=== PATIENT | male | born 1980 | race African-American/Black ===

== ENCOUNTER 2020-07-23 15:50 | Emergency (ER) | payer OTHER ==
[2020-07-23 16:55] LABS: #Basophils 0.1 thou/uL (0.0-0.2); #Eosinphils 0.1 thou/uL (0.0-0.7); #Lymphocytes 1.8 thou/uL (1.20-3.40); #Monocytes 0.9 thou/uL (0.11-0.59); #Neutrophils 8.9 thou/uL (1.40-6.50); %Basophils 0.6 % (0.0-1.0); %Lymphocytes 15.1 % (21.0-51.0); %Monocytes 7.6 % (0.0-10.0); %Neutrophils 75.7 % (42.0-75.0); Hemoglobin 15.2 g/dL (14.0-18.0); Mean Corpuscular Volume 87.9 fL (78.0-98.0); Mean Platelet Volume 7.4 fL (7.4-10.4); Platelet Count 289 thou/uL (130-400); Red Blood Cell (RBC) Count 5.25 mill/uL (4.70-6.10); White Blood Cell (WBC) Count 11.8 thou/uL (4.8-10.8)
[2020-07-23 17:21] LABS: ALT (SGPT) 32 U/L (8-55); AST (SGOT) 30 U/L (5-34); Alkaline Phosphatase 85 U/L (40-110); Anion Gap 13 mmol/L (10-20); BUN (Urea Nitrogen) 15 mg/dL (8.9-20.6); Bilirubin, Total 0.8 mg/dL (0.2-1.2); Calc. Creatinine Clearance 0 mL/min (70-130); Calcium 9.1 mg/dL (7.8-10.44); Carbon Dioxide 28 mmol/L (22-29); Chloride 99 mmol/L (98-107); Globulin 3.5 g/dL (2.4-3.5); Glucose 108 mg/dL (70-105); Lipase 64 U/L (8-78); Potassium 3.3 mmol/L (3.5-5.1); Protein, Total 7.5 g/dL (6.0-8.3); Sodium 137 mmol/L (136-145)
[2020-07-23 17:55] LABS: Bilirubin Negative (Negative); Blood, Urine Negative (Negative); Clarity Clear (Clear); Glucose, Urine (Dipstick) Normal (Negative); Ketone, Urine Negative (Negative); Leukocyte Negative Leu/uL (Negative); Nitrite Negative (Negative); Protein, Urine (Dipstick) 10 mg/dL (Neg-Trace); Specific Gravity, Urine 1.017 (1.002-1.036); Urobilinogen Normal mg/dL (Less than 2)
== END 2020-07-23 18:52 | disposition home or self-care (01) ==
LOC: ERS 15:50
DX: S30.22XA Contusion of scrotum and testes, initial encounter (principal); I10 Essential (primary) hypertension; E78.00 Pure hypercholesterolemia, unspecified; F17.210 Nicotine dependence, cigarettes, uncomplicated; X58.XXXA Exposure to other specified factors, initial encounter
CPT/HCPCS: 36415; 76870; 80053; 81003; 83690; 85025; 93976

== ENCOUNTER 2021-04-16 05:45 | Inpatient (IN) | payer MEDICAID, OTHER, SELFPAY ==
[2021-04-16] MEDS ORDERED: Nitroglycerin 2% Ointment 1 INCH/1 GM Packet ONE (06:16)
[2021-04-16 06:20] LABS: #Basophils 0.1 thou/uL (0.0-0.2); #Eosinphils 0.3 thou/uL (0.0-0.7); #Lymphocytes 2.6 thou/uL (1.20-3.40); #Monocytes 0.7 thou/uL (0.11-0.59); #Neutrophils 8.7 thou/uL (1.40-6.50); %Basophils 0.6 % (0.0-1.0); %Eosinophils 2.2 % (0.0-10.0); %Monocytes 5.9 % (0.0-10.0); %Neutrophils 70.3 % (42.0-75.0); Hemoglobin 16.6 g/dL (14.0-18.0); Mean Corpuscular HGB CONC 32.3 g/dL (32.0-36.0); Mean Corpuscular Hemoglobin 29.1 pg (27.0-31.0); Mean Corpuscular Volume 90.1 fL (78.0-98.0); Mean Platelet Volume 7.8 fL (7.4-10.4); Platelet Count 306 thou/uL (130-400); RBC Distribution Width 13.4 % (11.5-14.5); Red Blood Cell (RBC) Count 5.72 mill/uL (4.70-6.10); White Blood Cell (WBC) Count 12.3 thou/uL (4.8-10.8)
[2021-04-16] MEDS ORDERED: Lorazepam 2 MG/ML VIAL ONE ×3 (06:26→09:48)
[2021-04-16] MEDS ORDERED: methylPREDNISolone Sod Succ/PF 125 MG/2 ML VIAL ONE (06:27)
[2021-04-16] MEDS ORDERED: Furosemide 20 MG/2 ML VIAL ONE (06:27)
[2021-04-16] MEDS ORDERED: Magnesium 2 GM/50 ML BAG (IN WATER) ONE (06:27)
[2021-04-16 06:48] LABS: ALT (SGPT) 30 U/L (8-55); AST (SGOT) 32 U/L (5-34); Albumin 3.9 g/dL (3.5-5.0); Alkaline Phosphatase 75 U/L (40-110); Anion Gap 11 mmol/L (10-20); BUN (Urea Nitrogen) 18 mg/dL (8.9-20.6); Bilirubin, Total 0.3 mg/dL (0.2-1.2); Calc. Creatinine Clearance 0 mL/min (70-130); Calcium 8.9 mg/dL (7.8-10.44); Carbon Dioxide 28 mmol/L (22-29); Chloride 104 mmol/L (98-107); Globulin 3.5 g/dL (2.4-3.5); Glucose 122 mg/dL (70-105); Potassium 3.8 mmol/L (3.5-5.1); Protein, Total 7.4 g/dL (6.0-8.3); Sodium 139 mmol/L (136-145)
[2021-04-16] MEDS ORDERED: Nitroglycerin 50 MG/250 ML BOT 250 ML ONE (07:05)
[2021-04-16 07:09] LABS: CKMB 4.8 ng/mL (0-6.6)
[2021-04-16 07:29] LABS: INR-International Normal Ratio 0.9; PTT 27.7 sec (22.9-36.1); Prothrombin Time 11.7 sec (12.0-14.7)
[2021-04-16 07:36] LABS: Acetaminophen Less than 6.0 mcg/mL (10.0-30.0); Alcohol Less than 10 mg/dL (Less than 10); Salicylate Less than 8.0 mg/dL (15.0-30.0)
[2021-04-16] MEDS ORDERED: Ketamine 50 MG/ML (10ML VIAL) ONE (07:37)
[2021-04-16] MEDS ORDERED: Rocuronium Bromide 10 MG/ML (10ML VIAL) ONE (07:37)
[2021-04-16] MEDS ORDERED: Norepinephrine 8 MG/0.9% NS 250 ML ONE (07:38)
[2021-04-16 07:42] LABS: Bilirubin Negative (Negative); Blood, Urine Negative (Negative); Clarity Clear (Clear); Glucose, Urine (Dipstick) Normal (Negative); Ketone, Urine Negative (Negative); Leukocyte Negative Leu/uL (Negative); Nitrite Negative (Negative); Protein, Urine (Dipstick) Negative (Neg-Trace); Specific Gravity, Urine 1.005 (1.002-1.036); Urobilinogen Normal mg/dL (Less than 2)
[2021-04-16 07:54] LABS: Amphetamine Not Detected (NotDetected); Barbiturates Screen Not Detected (NotDetected); Benzodiazepine Screen Not Detected (NotDetected); Cocaine Metabolite Screen Detected (NotDetected); Methadone Not Detected (NotDetected); Methamphetamine Not Detected (NotDetected); Opiate Screen Not Detected (NotDetected); Oxycodone Screen Not Detected (NotDetected); Phencyclidine (PCP) Not Detected (NotDetected); THC/Cannabinoid Screen Not Detected (NotDetected); Tricyclic Screen Not Detected (NotDetected)
[2021-04-16] MEDS ORDERED: Fentanyl 100 MCG/2 ML VIAL ONE ×2 (08:06→09:40)
[2021-04-16] MEDS ORDERED: Nitroglycerin 2% Ointment 1 INCH/1 GM Packet TOP SCH (08:30)
[2021-04-16] MEDS ORDERED: Nitroglycerin 50 MG/250 ML BOT 250 ML IVPB SCH (08:30)
[2021-04-16] MEDS ORDERED: Fentanyl CADD 100 ML IVPB SCH (08:30)
[2021-04-16] MEDS ORDERED: Norepinephrine 8 MG/0.9% NS 250 ML IVPB SCH (08:30)
[2021-04-16] MEDS ORDERED: Furosemide 20 MG/2 ML VIAL SLOW IVP SCH (08:30)
[2021-04-16] MEDS ORDERED: Lorazepam 2 MG/ML VIAL SLOW IVP SCH (08:30)
[2021-04-16] MEDS ORDERED: Rocuronium Bromide 50 MG/5 ML VIAL IVP SCH (08:30)
[2021-04-16] MEDS ORDERED: methylPREDNISolone Sod Succ/PF 125 MG/2 ML VIAL IVP SCH (08:30)
[2021-04-16] MEDS ORDERED: Ketamine 50 MG/ML (10ML VIAL) SLOW IVP SCH (08:30)
[2021-04-16] MEDS ORDERED: Magnesium 2 GM/50 ML 2 GM in Premix Bag 1 BAG IVPB SCH (09:00)
[2021-04-16] MEDS ORDERED: Propofol 1,000 MG/100 ML VIAL IV ONE (09:02)
[2021-04-16 09:06] LABS: Actual Bicarbonate (HCO3a) 24.1 mEq/L (22-28); Analyzer IN Cardio ER; Base Excess (BEa) -2.1 mEq/L (-2.0 to +3.0); CO2 Tension 46.3 mmHg (35.0-45.0); Calcium, Ionized (arterial) 1.12 mmol/L (1.12-1.30); Hemoglobin (Hb) 16.8 g/dL (14.0-18.0); O2 Tension (PaO2), arterial 63.4 mmHg (80.0-100.0); Potassium - ABG Lab 3.97 mmol/L (3.70-5.30); pH, Arterial 7.34 (7.35-7.45)
[2021-04-16 09:07] LABS: ALV-art Gradient 306.525 mmHg (0-20); Puncture Site RRA
[2021-04-16 09:22] LABS: SARS-CoV-2 NAA Rapid Test Not Detected (NotDetected)
[2021-04-16] MEDS ORDERED: Ondansetron PF 4 MG/2 ML Vial IVP PRN (10:11)
[2021-04-16] MEDS ORDERED: Ondansetron ODT 4 MG TAB PO PRN (10:11)
[2021-04-16 10:16] LABS: Troponin I 0.118 ng/mL (< 0.028)
[2021-04-16] MEDS ORDERED: Norepinephrine 8 MG/0.9% NS 250 ML IVPB PRN (10:44)
[2021-04-16] MEDS ORDERED: Aspirin 300 MG Suppository PR SCH ×2 (10:52→12:00)
[2021-04-16] MEDS ORDERED: Albuterol Sulfate 2.5 mg/3 ml Neb NEB PRN (10:58)
[2021-04-16] MEDS ORDERED: Aspirin Chewable 81 MG TAB PER TUBE SCH (12:00)
[2021-04-16] MEDS: methylPREDNISolone Sod Succ 40 MG VIAL IVP SCH ×3 (12:15→23:57)
[2021-04-16] MEDS ORDERED: DISCONTINUE PREVIOUS NARCOTIC PAIN MEDICATIONS AND BENZODIAZEPINES FS SCH (12:15)
[2021-04-16] MEDS: Furosemide 40 MG/4 ML VIAL SLOW IVP SCH (12:15)
[2021-04-16] MEDS ORDERED: Ventilator Sedation Protocol 1 EACH FS SCH (12:15)
[2021-04-16] MEDS ORDERED: Fentanyl BOLUS 250 ML IVPB PRN (12:15)
[2021-04-16] MEDS ORDERED: Propofol BOLUS 1,000 MG/100 ML VIAL IV PRN (12:15)
[2021-04-16] MEDS ORDERED: Morphine 4 MG/ML VIAL SLOW IVP PRN (12:15)
[2021-04-16] MEDS ORDERED: Fentanyl CADD 100 ML IV SCH (12:15)
[2021-04-16] MEDS: Propofol 1,000 MG/100 ML VIAL IV PRN ×3 (12:15→23:57)
[2021-04-16] MEDS ORDERED: EPINEPHrine 1 MG/10 ML Abboject SYRINGE ONE (12:19)
[2021-04-16] MEDS: Lorazepam 2 MG/ML VIAL SLOW IVP PRN ×2 (12:51→19:20)
[2021-04-16] MEDS ORDERED: Cefepime 2 GM in Sodium Chloride 0.9% 100 ML IVPB SCH (13:00)
[2021-04-16 13:06] LABS: Troponin I 0.097 ng/mL (< 0.028)
[2021-04-16] MEDS ORDERED: VANCOMYCIN 1.75 GM/350 ML BAG 1.75 GM in Premix Bag 1 BAG IVPB SCH (14:00)
[2021-04-16] MEDS: Heparin 5,000 UNITS/ML VIAL SC SCH ×2 (14:30→20:05)
[2021-04-16] MEDS ORDERED: FLU VACC QS2021-22(6MOS UP)/PF 60 MCG/0.5 ML SYRINGE IM ONE (18:00)
[2021-04-16] MEDS: Famotidine/PF 20 mg/2ml Vial SLOW IVP SCH (20:05)
[2021-04-17] MEDS: Propofol 1,000 MG/100 ML VIAL IV PRN ×2 (04:10→05:27)
[2021-04-17 04:14] LABS: Anion Gap 12 mmol/L (10-20); BUN (Urea Nitrogen) 16 mg/dL (8.9-20.6); Calc. Creatinine Clearance 92 mL/min (70-130); Calcium 8.5 mg/dL (7.8-10.44); Carbon Dioxide 23 mmol/L (22-29); Chloride 105 mmol/L (98-107); Glucose 122 mg/dL (70-105); Potassium 3.2 mmol/L (3.5-5.1); Sodium 137 mmol/L (136-145)
[2021-04-17 05:16] LABS: #Lymphocytes 0.6 thou/uL (1.20-3.40); #Monocytes 0.4 thou/uL (0.11-0.59); #Neutrophils 12.5 thou/uL (1.40-6.50); %Basophils 0.1 % (0.0-1.0); %Eosinophils 0.2 % (0.0-10.0); %Lymphocytes 4.1 % (21.0-51.0); %Monocytes 2.7 % (0.0-10.0); %Neutrophils 92.9 % (42.0-75.0); Hemoglobin 15.4 g/dL (14.0-18.0); Mean Corpuscular HGB CONC 33.1 g/dL (32.0-36.0); Mean Corpuscular Hemoglobin 29.7 pg (27.0-31.0); Mean Corpuscular Volume 89.8 fL (78.0-98.0); Mean Platelet Volume 8.7 fL (7.4-10.4); Platelet Count 299 thou/uL (130-400); RBC Distribution Width 13.3 % (11.5-14.5); Red Blood Cell (RBC) Count 5.17 mill/uL (4.70-6.10); White Blood Cell (WBC) Count 13.5 thou/uL (4.8-10.8)
[2021-04-17] MEDS: Furosemide 40 MG/4 ML VIAL SLOW IVP SCH (05:24)
[2021-04-17] MEDS: methylPREDNISolone Sod Succ 40 MG VIAL IVP SCH ×3 (05:26→19:01)
[2021-04-17] MEDS ORDERED: Aspirin 81 mg Enteric Coated Tablet PER TUBE SCH (09:00)
[2021-04-17] MEDS: Aspirin Chewable 81 MG TAB PER TUBE SCH ×2 (10:00→10:42)
[2021-04-17] MEDS: Heparin 5,000 UNITS/ML VIAL SC SCH ×3 (10:00→21:59)
[2021-04-17] MEDS: Famotidine/PF 20 mg/2ml Vial SLOW IVP SCH ×2 (10:00→21:59)
[2021-04-17] MEDS: Cefepime 2 GM in Sodium Chloride 0.9% 100 ML IVPB SCH ×2 (14:46→22:17)
[2021-04-18] MEDS: methylPREDNISolone Sod Succ 40 MG VIAL IVP SCH ×4 (00:57→20:39)
[2021-04-18 04:08] LABS: Anion Gap 14 mmol/L (10-20); BUN (Urea Nitrogen) 30 mg/dL (8.9-20.6); Calc. Creatinine Clearance 77 mL/min (70-130); Carbon Dioxide 22 mmol/L (22-29); Chloride 104 mmol/L (98-107); Potassium 3.6 mmol/L (3.5-5.1); Sodium 136 mmol/L (136-145)
[2021-04-18 04:09] LABS: Calcium 8.5 mg/dL (7.8-10.44); Glucose 142 mg/dL (70-105)
[2021-04-18 04:13] LABS: Hemoglobin 14.3 g/dL (14.0-18.0); Lymphocytes 9 % (21-51); MDiff Complete? YES; Mean Corpuscular HGB CONC 33.2 g/dL (32.0-36.0); Mean Corpuscular Hemoglobin 29.9 pg (27.0-31.0); Mean Platelet Volume 8.3 fL (7.4-10.4); Monocytes 5 % (0-10); Neutrophil 86 % (42-75); Platelet Count 276 thou/uL (130-400); Platelet Morphology Comment Appears Adequate; RBC Distribution Width 13.4 % (11.5-14.5); RBC Morphology Normal; Red Blood Cell (RBC) Count 4.77 mill/uL (4.70-6.10); White Blood Cell (WBC) Count 15.8 thou/uL (4.8-10.8)
[2021-04-18] MEDS: Cefepime 2 GM in Sodium Chloride 0.9% 100 ML IVPB SCH ×3 (06:30→22:53)
[2021-04-18] MEDS: Heparin 5,000 UNITS/ML VIAL SC SCH ×3 (07:48→20:39)
[2021-04-18] MEDS: Famotidine/PF 20 mg/2ml Vial SLOW IVP SCH (07:49)
[2021-04-18] MEDS: Lactated Ringer's 1,000 ML IV SCH ×2 (10:36→20:45)
[2021-04-18] MEDS: hydrALAZINE 20 MG/ML VIAL SLOW IVP PRN (17:14)
[2021-04-18] MEDS ORDERED: Metoprolol Tartrate 5 MG/5 ML VIAL ONE (22:50)
[2021-04-18] MEDS: Acetaminophen 325 MG TAB PER TUBE PRN (22:54)
[2021-04-18] MEDS ORDERED: Metoprolol Tartrate 5 MG/5 ML VIAL IVP SCH (23:15)
[2021-04-18] MEDS ORDERED: Potassium Chloride 20 MEQ TAB PO SCH (23:15)
[2021-04-18 23:29] LABS: Magnesium 2.4 mg/dL (1.6-2.6)
[2021-04-19] MEDS: Acetaminophen 325 MG TAB PER TUBE PRN (03:05)
[2021-04-19] MEDS: Lorazepam 2 MG/ML VIAL SLOW IVP PRN (03:05)
[2021-04-19] MEDS: Aspirin Chewable 81 MG TAB PER TUBE SCH (09:58)
[2021-04-19] MEDS: methylPREDNISolone Sod Succ 40 MG VIAL IVP SCH (09:58)
[2021-04-19] MEDS: Cefepime 2 GM in Sodium Chloride 0.9% 100 ML IVPB SCH (09:59)
[2021-04-19] MEDS: Heparin 5,000 UNITS/ML VIAL SC SCH ×2 (09:59→17:15)
[2021-04-19] MEDS: hydrALAZINE 20 MG/ML VIAL SLOW IVP PRN (09:59)
[2021-04-19 12:18] VITALS: TEMP 98.1
[2021-04-19 13:09] VITALS: BMI 29.9
[2021-04-19] MEDS ORDERED: Isosorbide Dinitrate 5 MG TAB PO SCH (15:00)
[2021-04-19] MEDS ORDERED: hydrALAZINE 25 MG TAB PO SCH (15:00)
[2021-04-19 15:04] LABS: #Basophils 0.1 thou/uL (0.0-0.2); #Lymphocytes 1.8 thou/uL (1.20-3.40); #Monocytes 1.2 thou/uL (0.11-0.59); #Neutrophils 11.5 thou/uL (1.40-6.50); %Basophils 0.3 % (0.0-1.0); %Eosinophils 0.2 % (0.0-10.0); %Lymphocytes 12.3 % (21.0-51.0); %Monocytes 8.5 % (0.0-10.0); %Neutrophils 78.8 % (42.0-75.0); Hemoglobin 15.6 g/dL (14.0-18.0); Mean Corpuscular HGB CONC 33.9 g/dL (32.0-36.0); Mean Corpuscular Hemoglobin 30.7 pg (27.0-31.0); Mean Corpuscular Volume 90.5 fL (78.0-98.0); Mean Platelet Volume 7.8 fL (7.4-10.4); Platelet Count 275 thou/uL (130-400); RBC Distribution Width 13.5 % (11.5-14.5); Red Blood Cell (RBC) Count 5.07 mill/uL (4.70-6.10); White Blood Cell (WBC) Count 14.6 thou/uL (4.8-10.8)
[2021-04-19 15:22] LABS: Anion Gap 11 mmol/L (10-20); BUN (Urea Nitrogen) 20 mg/dL (8.9-20.6); Calc. Creatinine Clearance 95 mL/min (70-130); Calcium 8.6 mg/dL (7.8-10.44); Carbon Dioxide 24 mmol/L (22-29); Chloride 105 mmol/L (98-107); Glucose 128 mg/dL (70-105); Potassium 3.4 mmol/L (3.5-5.1); Sodium 137 mmol/L (136-145)
[2021-04-19 17:16] VITALS: BP 162/114
== END 2021-04-19 17:30 | disposition left against medical advice (07) | DRG 291 ==
LOC: ERS 05:45 → CCU 08:06 → 2NO 04-18 18:33
PROVIDERS: ADMIT Family Medicine; ATTEND Internal Medicine
PROC: 5A1945Z Respiratory Ventilation, 24-96 Consecutive Hours (ICD-10-PCS; principal; 2021-04-16)
PROC: 5A09357 Assistance with Respiratory Ventilation, Less than 24 Consecutive Hours, Continuous Positive Airway Pressure (ICD-10-PCS; 2021-04-16)
PROC: 0D9670Z Drainage of Stomach with Drainage Device, Via Natural or Artificial Opening (ICD-10-PCS; 2021-04-16)
PROC: 0BH17EZ Insertion of Endotracheal Airway into Trachea, Via Natural or Artificial Opening (ICD-10-PCS; 2021-04-16)
PROC: 3E033XZ Introduction of Vasopressor into Peripheral Vein, Percutaneous Approach (ICD-10-PCS; 2021-04-16)
PROC: 02HV33Z Insertion of Infusion Device into Superior Vena Cava, Percutaneous Approach (ICD-10-PCS; 2021-04-16)
DX: I13.0 Hypertensive heart and chronic kidney disease with heart failure and stage 1 through stage 4 chronic kidney disease, or unspecified chronic kidney disease (principal); J96.01 Acute respiratory failure with hypoxia; I50.43 Acute on chronic combined systolic (congestive) and diastolic (congestive) heart failure; N17.9 Acute kidney failure, unspecified; I24.8 Other forms of acute ischemic heart disease; Z20.822 Contact with and (suspected) exposure to COVID-19; Z23 Encounter for immunization; I42.8 Other cardiomyopathies; E78.00 Pure hypercholesterolemia, unspecified; F41.9 Anxiety disorder, unspecified; F32.A Depression, unspecified; F12.10 Cannabis abuse, uncomplicated; F14.10 Cocaine abuse, uncomplicated; F17.210 Nicotine dependence, cigarettes, uncomplicated; N18.30 Chronic kidney disease, stage 3 unspecified; F10.10 Alcohol abuse, uncomplicated; I08.1 Rheumatic disorders of both mitral and tricuspid valves; D72.829 Elevated white blood cell count, unspecified; J45.909 Unspecified asthma, uncomplicated; I95.9 Hypotension, unspecified; T38.0X5A Adverse effect of glucocorticoids and synthetic analogues, initial encounter; T50.916A Underdosing of multiple unspecified drugs, medicaments and biological substances, initial encounter; Z78.1 Physical restraint status; Z98.890 Other specified postprocedural states; Z53.29 Procedure and treatment not carried out because of patient's decision for other reasons; Z91.128 Patient's intentional underdosing of medication regimen for other reason; Z91.14 Patient's other noncompliance with medication regimen
CPT/HCPCS: 31500; 36415; 36556; 36600; 51702; 71045; 80048; 80053; 80306; 80307; 81003; 82553; 82805; 83735; 83880; 84145; 84484; 85025; 85610; 85730; 90471; 90686; 93005; 93306; 94002; 94003; 94640; 94660; 94760; 96365; 96366; 96367; 96375; 96376; G0008; J0171; J0360; J0692; J1644; J1940; J2060; J2270; J2704; J2920; J2930; J3010; J3370; J3475; J3490; J7120; J7620; S0028; U0002

== ENCOUNTER 2021-10-31 07:19 | Inpatient (IN) | payer OTHER ==
[2021-10-31] MEDS ORDERED: Albuterol Sulfate 2.5 mg/0.5 ml Neb ONE (08:37)
[2021-10-31 11:13] LABS: #Basophils 0.1 thou/uL (0.0-0.2); #Eosinphils 0.1 thou/uL (0.0-0.7); #Lymphocytes 1.8 thou/uL (1.20-3.40); #Monocytes 0.8 thou/uL (0.11-0.59); #Neutrophils 7.3 thou/uL (1.40-6.50); %Basophils 0.9 % (0.0-1.0); %Eosinophils 1.3 % (0.0-10.0); %Neutrophils 71.8 % (42.0-75.0); Hemoglobin 14.6 g/dL (14.0-18.0); Mean Corpuscular Hemoglobin 28.8 pg (27.0-31.0); Mean Corpuscular Volume 89.9 fL (78.0-98.0); Mean Platelet Volume 8.4 fL (7.4-10.4); Platelet Count 258 thou/uL (130-400); RBC Distribution Width 13.4 % (11.5-14.5); Red Blood Cell (RBC) Count 5.07 mill/uL (4.70-6.10); White Blood Cell (WBC) Count 10.2 thou/uL (4.8-10.8)
[2021-10-31 11:33] LABS: ALT (SGPT) 46 U/L (8-55); AST (SGOT) 45 U/L (5-34); Albumin 3.5 g/dL (3.5-5.0); Alkaline Phosphatase 72 U/L (40-110); Anion Gap 7 mmol/L (10-20); BUN (Urea Nitrogen) 10 mg/dL (8.9-20.6); Bilirubin, Total 0.6 mg/dL (0.2-1.2); Calc. Creatinine Clearance 0 mL/min (70-130); Calcium 8.6 mg/dL (7.8-10.44); Carbon Dioxide 32 mmol/L (22-29); Chloride 104 mmol/L (98-107); Estimated GFR 78; Globulin 2.9 g/dL (2.4-3.5); Glucose 96 mg/dL (70-105); Potassium 3.6 mmol/L (3.5-5.1); Protein, Total 6.4 g/dL (6.0-8.3); Sodium 139 mmol/L (136-145)
[2021-10-31] MEDS ORDERED: Cefepime 2 GM VIAL ONE (11:42)
[2021-10-31 11:56] LABS: CKMB 4.9 ng/mL (0-6.6)
[2021-10-31 12:14] LABS: Bilirubin Negative (Negative); Blood, Urine Negative (Negative); Clarity Clear (Clear); Glucose, Urine (Dipstick) Normal (Negative); Ketone, Urine Negative (Negative); Leukocyte Negative Leu/uL (Negative); Nitrite Negative (Negative); Protein, Urine (Dipstick) Negative (Neg-Trace); Specific Gravity, Urine 1.015 (1.002-1.036); Urobilinogen Normal mg/dL (Less than 2)
[2021-10-31] MEDS ORDERED: Furosemide 40 MG/4 ML VIAL ONE (12:34)
[2021-10-31] MEDS ORDERED: Vancomycin 1 GM/200 ML BAG ONE (12:34)
[2021-10-31] MEDS ORDERED: Acetaminophen 500 MG TAB ONE (12:51)
[2021-10-31] MEDS ORDERED: Iopamidol-370 76% 500 ML 1 ML ONE (13:43)
[2021-10-31 14:45] LABS: Magnesium 1.9 mg/dL (1.6-2.6)
[2021-10-31 15:23] LABS: Amphetamine Not Detected (NotDetected); Barbiturates Screen Not Detected (NotDetected); Benzodiazepine Screen Not Detected (NotDetected); Cocaine Metabolite Screen Detected (NotDetected); Methadone Not Detected (NotDetected); Methamphetamine Not Detected (NotDetected); Opiate Screen Not Detected (NotDetected); Oxycodone Screen Not Detected (NotDetected); Phencyclidine (PCP) Detected (NotDetected); THC/Cannabinoid Screen Not Detected (NotDetected); Tricyclic Screen Not Detected (NotDetected)
[2021-10-31 15:26] LABS: Troponin I 0.042 ng/mL (< 0.028)
[2021-10-31 15:27] LABS: SARS-CoV-2 NAA Rapid Test Not Detected (NotDetected)
[2021-10-31] MEDS ORDERED: Aspirin 325 MG TAB ONE (16:22)
[2021-10-31] MEDS ORDERED: Aspirin Chewable 81 MG TAB ONE (16:23)
[2021-10-31 18:00] LABS: Troponin I 0.051 ng/mL (< 0.028)
[2021-10-31 19:43] VITALS: BMI 27.1
[2021-10-31] MEDS ORDERED: Acetaminophen 325 MG TAB ONE (19:46)
[2021-10-31] MEDS: Acetaminophen 325 MG TAB PO PRN (19:48)
[2021-10-31] MEDS: VANCOMYCIN 1.25 GM/250 ML BAG 1.25 GM in Premix Bag 1 BAG IVPB SCH (23:02)
[2021-11-01] MEDS: Cefepime 2 GM in Sodium Chloride 0.9% 100 ML IVPB SCH ×2 (00:53→12:18)
[2021-11-01] MEDS: VANCOMYCIN 1.25 GM/250 ML BAG 1.25 GM in Premix Bag 1 BAG IVPB SCH ×2 (04:21→13:24)
[2021-11-01] MEDS: Acetaminophen 325 MG TAB PO PRN (05:16)
[2021-11-01] MEDS: Furosemide 40 MG/4 ML VIAL SLOW IVP SCH ×2 (05:16→13:25)
[2021-11-01 05:19] LABS: #Basophils 0.1 thou/uL (0.0-0.2); #Eosinphils 0.3 thou/uL (0.0-0.7); #Lymphocytes 1.7 thou/uL (1.20-3.40); #Monocytes 0.6 thou/uL (0.11-0.59); #Neutrophils 4.3 thou/uL (1.40-6.50); %Basophils 1.1 % (0.0-1.0); %Eosinophils 3.8 % (0.0-10.0); %Lymphocytes 24.5 % (21.0-51.0); %Monocytes 8.2 % (0.0-10.0); %Neutrophils 62.4 % (42.0-75.0); Hemoglobin 14.5 g/dL (14.0-18.0); Mean Corpuscular HGB CONC 33.1 g/dL (32.0-36.0); Mean Corpuscular Hemoglobin 29.8 pg (27.0-31.0); Mean Platelet Volume 8.8 fL (7.4-10.4); Platelet Count 234 thou/uL (130-400); RBC Distribution Width 13.3 % (11.5-14.5); Red Blood Cell (RBC) Count 4.87 mill/uL (4.70-6.10)
[2021-11-01 05:43] LABS: Anion Gap 14 mmol/L (10-20); BUN (Urea Nitrogen) 13 mg/dL (8.9-20.6); Calc. Creatinine Clearance 109 mL/min (70-130); Calcium 8.6 mg/dL (7.8-10.44); Carbon Dioxide 25 mmol/L (22-29); Chloride 103 mmol/L (98-107); Estimated GFR 83; Glucose 124 mg/dL (70-105); Potassium 3.2 mmol/L (3.5-5.1); Sodium 139 mmol/L (136-145)
[2021-11-01] MEDS ORDERED: Electrolyte Replacement Protocol FS PRN (06:30)
[2021-11-01] MEDS ORDERED: Potassium Chloride 20 MEQ TAB PO SCH (08:00)
[2021-11-01] MEDS ORDERED: Magnesium 2 GM/50 ML(in water) 2 GM in Premix Bag 1 BAG IVPB SCH (08:00)
[2021-11-01] MEDS ORDERED: Enoxaparin Sodium 40 MG/0.4 ML SYRINGE SC SCH (09:00)
[2021-11-01] MEDS: Aspirin 81 mg Enteric Coated Tablet PO SCH (09:04)
[2021-11-01] MEDS: Potassium Chloride 20 MEQ TAB PO SCH ×2 (09:04→16:48)
[2021-11-01] MEDS: PARoxetine 20 MG TAB PO SCH (09:04)
[2021-11-01] MEDS: Atorvastatin Calcium 40 MG TAB PO SCH (09:04)
[2021-11-01 11:49] LABS: Vancomycin, Trough 15.6 ug/mL
[2021-11-01] MEDS: HYDROcodone/Acetaminophen 5/325 mg Tablet PO PRN ×2 (13:25→21:22)
[2021-11-01] MEDS ORDERED: Morphine 2 MG/ML VIAL SLOW IVP PRN (15:47)
[2021-11-01] MEDS ORDERED: Ketorolac Tromethamine 30 MG/ML VIAL IVP SCH (16:30)
[2021-11-01] MEDS: Carvedilol 6.25 MG TAB PO SCH (16:48)
[2021-11-01] MEDS: Doxycycline 100 MG CAP PO SCH (20:52)
[2021-11-02 05:14] LABS: #Basophils 0.1 thou/uL (0.0-0.2); #Eosinphils 0.3 thou/uL (0.0-0.7); #Lymphocytes 1.9 thou/uL (1.20-3.40); #Monocytes 0.7 thou/uL (0.11-0.59); #Neutrophils 4.3 thou/uL (1.40-6.50); %Basophils 1.2 % (0.0-1.0); %Eosinophils 4.4 % (0.0-10.0); %Monocytes 9.3 % (0.0-10.0); %Neutrophils 59.2 % (42.0-75.0); Hemoglobin 13.6 g/dL (14.0-18.0); Mean Corpuscular HGB CONC 31.6 g/dL (32.0-36.0); Mean Corpuscular Hemoglobin 28.3 pg (27.0-31.0); Mean Corpuscular Volume 89.5 fL (78.0-98.0); Mean Platelet Volume 8.7 fL (7.4-10.4); Platelet Count 237 thou/uL (130-400); RBC Distribution Width 13.5 % (11.5-14.5); Red Blood Cell (RBC) Count 4.81 mill/uL (4.70-6.10); White Blood Cell (WBC) Count 7.3 thou/uL (4.8-10.8)
[2021-11-02 05:35] LABS: Anion Gap 12 mmol/L (10-20); BUN (Urea Nitrogen) 16 mg/dL (8.9-20.6); Calc. Creatinine Clearance 99 mL/min (70-130); Calcium 8.7 mg/dL (7.8-10.44); Carbon Dioxide 27 mmol/L (22-29); Chloride 105 mmol/L (98-107); Estimated GFR 72; Glucose 88 mg/dL (70-105); Sodium 140 mmol/L (136-145)
[2021-11-02] MEDS: Furosemide 40 MG/4 ML VIAL SLOW IVP SCH ×2 (06:05→14:27)
[2021-11-02] MEDS: HYDROcodone/Acetaminophen 5/325 mg Tablet PO PRN ×2 (06:18→16:55)
[2021-11-02] MEDS: PARoxetine 20 MG TAB PO SCH (08:32)
[2021-11-02] MEDS: Carvedilol 6.25 MG TAB PO SCH (08:32)
[2021-11-02] MEDS: Aspirin 81 mg Enteric Coated Tablet PO SCH (08:32)
[2021-11-02] MEDS: Potassium Chloride 20 MEQ TAB PO SCH ×2 (08:32→16:35)
[2021-11-02] MEDS: Doxycycline 100 MG CAP PO SCH ×2 (08:32→21:28)
[2021-11-02] MEDS: Atorvastatin Calcium 40 MG TAB PO SCH (08:32)
[2021-11-02] MEDS ORDERED: Losartan 25 MG TAB PO SCH (09:00)
[2021-11-02] MEDS ORDERED: Spironolactone 25 MG TAB PO SCH (11:15)
[2021-11-02 11:20] LABS: Vancomycin, Trough 5.2 ug/mL
[2021-11-02] MEDS: Carvedilol 25 MG TAB PO SCH (16:36)
[2021-11-02] MEDS: GUAIFENESIN SF SOLN 200 MG/10 ML UDCUP PO PRN (16:49)
[2021-11-02] MEDS: Nitroglycerin 0.4 MG TAB (25 Tab Bottle) SL PRN (20:44)
[2021-11-02] MEDS: Losartan 25 MG TAB PO SCH (21:28)
[2021-11-03] MEDS: Acetaminophen 325 MG TAB PO PRN (00:49)
[2021-11-03] MEDS: Nitroglycerin 0.4 MG TAB (25 Tab Bottle) SL PRN (00:50)
[2021-11-03] MEDS ORDERED: Melatonin 3 MG TAB PO PRN (01:24)
[2021-11-03 05:44] LABS: #Basophils 0.1 thou/uL (0.0-0.2); #Eosinphils 0.3 thou/uL (0.0-0.7); #Lymphocytes 1.9 thou/uL (1.20-3.40); #Monocytes 0.7 thou/uL (0.11-0.59); #Neutrophils 6.1 thou/uL (1.40-6.50); %Basophils 0.8 % (0.0-1.0); %Eosinophils 3.3 % (0.0-10.0); %Lymphocytes 20.7 % (21.0-51.0); %Monocytes 8.1 % (0.0-10.0); %Neutrophils 67.1 % (42.0-75.0); Hemoglobin 14.2 g/dL (14.0-18.0); Mean Corpuscular HGB CONC 32.7 g/dL (32.0-36.0); Mean Corpuscular Hemoglobin 29.5 pg (27.0-31.0); Mean Corpuscular Volume 90.1 fL (78.0-98.0); Mean Platelet Volume 9.3 fL (7.4-10.4); Platelet Count 249 thou/uL (130-400); RBC Distribution Width 13.5 % (11.5-14.5); White Blood Cell (WBC) Count 9.1 thou/uL (4.8-10.8)
[2021-11-03 06:03] LABS: Anion Gap 15 mmol/L (10-20); BUN (Urea Nitrogen) 16 mg/dL (8.9-20.6); Calc. Creatinine Clearance 97 mL/min (70-130); Calcium 8.8 mg/dL (7.8-10.44); Carbon Dioxide 24 mmol/L (22-29); Chloride 104 mmol/L (98-107); Estimated GFR 70; Glucose 90 mg/dL (70-105); Magnesium 1.9 mg/dL (1.6-2.6); Potassium 4.1 mmol/L (3.5-5.1); Sodium 139 mmol/L (136-145)
[2021-11-03] MEDS ORDERED: Magnesium 2 GM/50 ML(in water) 2 GM in Premix Bag 1 BAG IVPB SCH (06:30)
[2021-11-03] MEDS: GUAIFENESIN SF SOLN 200 MG/10 ML UDCUP PO PRN (08:09)
[2021-11-03] MEDS: Carvedilol 25 MG TAB PO SCH (08:11)
[2021-11-03] MEDS: Doxycycline 100 MG CAP PO SCH (08:11)
[2021-11-03] MEDS: Potassium Chloride 20 MEQ TAB PO SCH (08:11)
[2021-11-03] MEDS: Losartan 25 MG TAB PO SCH (08:11)
[2021-11-03] MEDS: Atorvastatin Calcium 40 MG TAB PO SCH (08:11)
[2021-11-03] MEDS: Aspirin 81 mg Enteric Coated Tablet PO SCH (08:12)
[2021-11-03] MEDS: PARoxetine 20 MG TAB PO SCH (08:12)
[2021-11-03] MEDS: Furosemide 40 MG/4 ML VIAL SLOW IVP SCH (08:12)
[2021-11-03] MEDS: HYDROcodone/Acetaminophen 5/325 mg Tablet PO PRN (08:20)
[2021-11-03] MEDS ORDERED: Spironolactone 25 MG TAB PO SCH (09:00)
[2021-11-03 12:04] VITALS: TEMP 97.8
[2021-11-03 12:28] VITALS: BP 139/93
[2021-11-03] MEDS ORDERED: Carvedilol 25 MG TAB PO SCH (17:00)
== END 2021-11-03 12:48 | disposition home or self-care (01) | DRG 291 ==
LOC: ERS 07:19 → ERHOLD 14:05 → OBSVTOIN 21:30 → NEURO 21:53
PROVIDERS: ADMIT Hospitalist; ATTEND Family Medicine
DX: I11.0 Hypertensive heart disease with heart failure (principal); I50.23 Acute on chronic systolic (congestive) heart failure; R04.2 Hemoptysis; I47.2 Ventricular tachycardia; I42.8 Other cardiomyopathies; F17.210 Nicotine dependence, cigarettes, uncomplicated; J44.9 Chronic obstructive pulmonary disease, unspecified; E78.00 Pure hypercholesterolemia, unspecified; F41.9 Anxiety disorder, unspecified; F32.A Depression, unspecified; F14.10 Cocaine abuse, uncomplicated; Z91.14 Patient's other noncompliance with medication regimen; Z20.822 Contact with and (suspected) exposure to COVID-19
CPT/HCPCS: 36415; 71045; 71275; 80048; 80053; 80202; 80306; 81003; 82553; 83605; 83735; 83880; 84443; 84484; 85025; 85379; 87040; 87086; 93005; 93306; 93798; 94640; 96361; 96365; 96366; 96375; 97139; G0378; J0692; J1885; J1940; J3370; J3475; J3490; J7611; J7620; Q9967

== ENCOUNTER 2021-11-03 14:26 | Emergency (ER) | payer OTHER ==
[2021-11-03] MEDS ORDERED: Furosemide 40 MG/4 ML VIAL ONE (15:39)
== END 2021-11-03 16:05 | disposition home or self-care (01) ==
LOC: ERS 14:26
DX: R53.1 Weakness (principal); E78.00 Pure hypercholesterolemia, unspecified; J44.9 Chronic obstructive pulmonary disease, unspecified; I11.0 Hypertensive heart disease with heart failure; I50.9 Heart failure, unspecified; F17.210 Nicotine dependence, cigarettes, uncomplicated; Z79.899 Other long term (current) drug therapy
CPT/HCPCS: 93005; 96374; J1940

== ENCOUNTER 2022-08-15 07:42 | Inpatient (IN) | payer OTHER ==
[2022-08-15] MEDS ORDERED: cefTRIAXone (ROCEPHIN) 2 GM VIAL ONE (08:04)
[2022-08-15] MEDS ORDERED: methylPREDNISolone Sod Succ/PF 125 MG/2 ML VIAL ONE (08:04)
[2022-08-15] MEDS ORDERED: Albuterol 2.5 MG/0.5 ML NEB ONE ×5 (08:04→08:54)
[2022-08-15] MEDS ORDERED: Azithromycin 500 MG VIAL ONE (08:05)
[2022-08-15] MEDS ORDERED: Ipratropium Bromide 2.5 ml Neb NEB SCH (08:30)
[2022-08-15 08:31] LABS: #Basophils 0.1 thou/uL (0.0-0.2); #Eosinphils 0.8 thou/uL (0.0-0.7); #Lymphocytes 1.7 thou/uL (1.20-3.40); #Monocytes 0.8 thou/uL (0.11-0.59); #Neutrophils 7.9 thou/uL (1.40-6.50); %Basophils 0.5 % (0.0-1.0); %Eosinophils 7.5 % (0.0-10.0); %Lymphocytes 15.2 % (21.0-51.0); %Monocytes 7.1 % (0.0-10.0); %Neutrophils 69.8 % (42.0-75.0); Hemoglobin 14.6 g/dL (14.0-18.0); Mean Corpuscular HGB CONC 32.3 g/dL (32.0-36.0); Mean Corpuscular Hemoglobin 29.5 pg (27.0-31.0); Mean Corpuscular Volume 91.5 fl (78.0-98.0); Platelet Count 292 10x3/uL (130-400); RBC Distribution Width 13.1 % (11.5-14.5); Red Blood Cell (RBC) Count 4.93 mill/uL (4.70-6.10); White Blood Cell (WBC) Count 11.3 10x3/uL (4.8-10.8)
[2022-08-15] MEDS ORDERED: LORazepam 2 MG/ML SYR.(CARPUJECT) ONE ×2 (08:40→08:51)
[2022-08-15 08:44] LABS: INR-International Normal Ratio 0.8; PTT 27.6 sec (22.9-36.1); Prothrombin Time 11.8 sec (12.0-14.7)
[2022-08-15] MEDS ORDERED: Magnesium 2 GM/50 ML BAG (IN WATER) ONE (08:50)
[2022-08-15 08:52] LABS: ALT (SGPT) 33 U/L (8-55); AST (SGOT) 32 U/L (5-34); Albumin 3.9 g/dL (3.5-5.0); Alkaline Phosphatase 76 U/L (40-110); Anion Gap 11 mmol/L (10-20); BUN (Urea Nitrogen) 13 mg/dL (8.9-20.6); Bilirubin, Total 0.2 mg/dL (0.2-1.2); Calc. Creatinine Clearance 0 mL/min (70-130); Calcium 9.3 mg/dL (7.8-10.44); Carbon Dioxide 30 mmol/L (22-29); Chloride 104 mmol/L (98-107); Estimated GFR 71; Globulin 2.9 g/dL (2.4-3.5); Glucose 97 mg/dL (70-105); Lipase 82 U/L (8-78); Potassium 4.3 mmol/L (3.5-5.1); Protein, Total 6.8 g/dL (6.0-8.3); Sodium 141 mmol/L (136-145)
[2022-08-15 09:10] LABS: Bacteria/HPF None Seen HPF (None Seen); Bilirubin Negative (Negative); Blood, Urine Negative (Negative); Clarity Clear (Clear); Glucose, Urine (Dipstick) Normal (Negative); Ketone, Urine Negative (Negative); Leukocyte 25 Leu/uL (Negative); Nitrite Negative (Negative); Protein, Urine (Dipstick) Negative (Neg-Trace); RBC/HPF 0-3 HPF (0-3); Specific Gravity, Urine 1.008 (1.002-1.036); Squamous Epithelial None Seen HPF (0-3); Urobilinogen Normal mg/dL (Less than 2); WBC/HPF 0-3 HPF (0-3); pH, Urine 5.5 (5.0-9.0)
[2022-08-15 09:13] LABS: CKMB 3.7 ng/mL (0-6.6)
[2022-08-15] MEDS ORDERED: Ipratropium/Albuterol 3 ML NEB ONE (09:22)
[2022-08-15] MEDS ORDERED: EPINEPHrine 1 MG/ML VIAL ONE (09:28)
[2022-08-15 09:36] LABS: SARS-CoV-2 NAA Rapid Test Not Detected (NotDetected)
[2022-08-15] MEDS ORDERED: Ipratropium/Albuterol 3 ML NEB NEB PRN (09:38)
[2022-08-15] MEDS ORDERED: Bisacodyl 10 MG SUPP PR PRN (09:38)
[2022-08-15] MEDS ORDERED: Electrolyte Replacement Protocol 1 EACH IVPB SCH (09:38)
[2022-08-15] MEDS ORDERED: Nicotine 14 MG PATCH TD PRN (09:44)
[2022-08-15] MEDS ORDERED: Acetaminophen 325 MG TAB PO PRN (09:46)
[2022-08-15 10:49] LABS: Actual Bicarbonate (HCO3v) 23.9 mEq/L (22-28); Base Excess -4.9 mEq/L (-2.0 to +3.0); Calcium, Ionized (venous) 1.09 mmol/L (1.16-1.32); Chloride (VBG) 105 mmol/L (98-106); Hematocrit-VBG 46 % (42.0-52.0); Hemoglobin (Hb) 15.5 g/dL (13.2-17.3); Potassium (VBG) 4.24 mmol/L (3.70-5.30); Sodium 139.5 mmol/L (133-146); pH (venous) 7.221 (7.32-7.43)
[2022-08-15] MEDS ORDERED: Iopamidol 370 76% 100 ML VIAL ONE (11:16)
[2022-08-15] MEDS: Ipratropium/Albuterol 3 ML NEB NEB SCH ×4 (11:47→22:01)
[2022-08-15 12:05] VITALS: BMI 14.3
[2022-08-15 12:42] LABS: Actual Bicarbonate (HCO3v) 23.9 mEq/L (22-28); Base Excess -1.9 mEq/L (-2.0 to +3.0); Calcium, Ionized (venous) 1.04 mmol/L (1.16-1.32); Chloride (VBG) 105 mmol/L (98-106); Hematocrit-VBG 44 % (42.0-52.0); Potassium (VBG) 4.68 mmol/L (3.70-5.30); Sodium 137.3 mmol/L (133-146); pH (venous) 7.347 (7.32-7.43)
[2022-08-15] MEDS ORDERED: Dextrose 5 %-0.45 % NaCl 1,000 ML IV SCH (12:45)
[2022-08-15] MEDS: methylPREDNISolone Sod Succ 40 MG VIAL IVP SCH ×2 (12:49→17:16)
[2022-08-15 13:25] LABS: Amphetamine Not Detected (NotDetected); Barbiturates Screen Not Detected (NotDetected); Benzodiazepine Screen Not Detected (NotDetected); Cocaine Metabolite Screen Detected (NotDetected); Methadone Not Detected (NotDetected); Methamphetamine Not Detected (NotDetected); Opiate Screen Not Detected (NotDetected); Oxycodone Screen Not Detected (NotDetected); Phencyclidine (PCP) Not Detected (NotDetected); THC/Cannabinoid Screen Not Detected (NotDetected); Tricyclic Screen Not Detected (NotDetected)
[2022-08-15 15:30] LABS: Legionella Urinary Ag Negative (Negative); Strep pneumo Urine Ag NEGATIVE (NEGATIVE)
[2022-08-15] MEDS: Mometasone 200 MCG/Formoterol 5 MCG 120 PUFF INHALER INH SCH (19:03)
[2022-08-15] MEDS ORDERED: Famotidine 20 MG TAB PO SCH (21:00)
[2022-08-15] MEDS ORDERED: Famotidine/PF 20 mg/2ml Vial SLOW IVP SCH (21:00)
[2022-08-16] MEDS: methylPREDNISolone Sod Succ 40 MG VIAL IVP SCH ×2 (00:12→06:13)
[2022-08-16] MEDS: Ipratropium/Albuterol 3 ML NEB NEB SCH ×2 (02:52→07:05)
[2022-08-16 03:32] LABS: #Lymphocytes 0.8 thou/uL (1.20-3.40); #Monocytes 0.6 thou/uL (0.11-0.59); %Lymphocytes 4.8 % (21.0-51.0); %Monocytes 3.4 % (0.0-10.0); %Neutrophils 91.7 % (42.0-75.0); Hemoglobin 14.4 g/dL (14.0-18.0); Mean Corpuscular HGB CONC 28.9 g/dL (32.0-36.0); Mean Corpuscular Hemoglobin 26.8 pg (27.0-31.0); Mean Corpuscular Volume 92.5 fl (78.0-98.0); Mean Platelet Volume 7.6 fL (7.4-10.4); Platelet Count 309 10x3/uL (130-400); RBC Distribution Width 12.8 % (11.5-14.5); Red Blood Cell (RBC) Count 5.37 mill/uL (4.70-6.10); White Blood Cell (WBC) Count 17.5 10x3/uL (4.8-10.8)
[2022-08-16 03:50] LABS: Anion Gap 11 mmol/L (10-20); BUN (Urea Nitrogen) 14 mg/dL (8.9-20.6); Calc. Creatinine Clearance 46 mL/min (70-130); Calcium 9.3 mg/dL (7.8-10.44); Carbon Dioxide 24 mmol/L (22-29); Chloride 105 mmol/L (98-107); Estimated GFR 82; Glucose 143 mg/dL (70-105); Magnesium 2.1 mg/dL (1.6-2.6); Phosphorus 2.1 mg/dL (2.3-4.7); Potassium 4.3 mmol/L (3.5-5.1); Sodium 136 mmol/L (136-145)
[2022-08-16] MEDS: Mometasone 200 MCG/Formoterol 5 MCG 120 PUFF INHALER INH SCH (07:05)
[2022-08-16] MEDS ORDERED: cefTRIAXone\\ROCEPHIN 2 GM in Sodium Chloride 0.9% 100 ML IVPB SCH (09:00)
[2022-08-16] MEDS ORDERED: Azithromycin 500 MG in Sodium Chloride 0.9% 250 ML 250 ML IVPB SCH (09:00)
[2022-08-16 09:59] VITALS: TEMP 98.6
== END 2022-08-16 07:40 | disposition left against medical advice (07) | DRG 193 ==
LOC: ERS 07:42 → CCU 10:58
PROVIDERS: ADMIT Internal Medicine; ATTEND Internal Medicine
DX: J18.9 Pneumonia, unspecified organism (principal); G93.41 Metabolic encephalopathy; J96.01 Acute respiratory failure with hypoxia; J45.901 Unspecified asthma with (acute) exacerbation; I50.22 Chronic systolic (congestive) heart failure; I42.8 Other cardiomyopathies; F14.121 Cocaine abuse with intoxication with delirium; E78.00 Pure hypercholesterolemia, unspecified; F41.9 Anxiety disorder, unspecified; F32.A Depression, unspecified; I11.0 Hypertensive heart disease with heart failure; F17.210 Nicotine dependence, cigarettes, uncomplicated; Z53.29 Procedure and treatment not carried out because of patient's decision for other reasons; Z79.51 Long term (current) use of inhaled steroids; Z79.899 Other long term (current) drug therapy
CPT/HCPCS: 36415; 71045; 71275; 80048; 80053; 80306; 81003; 81015; 82553; 82805; 83605; 83690; 83735; 83880; 84100; 84145; 84484; 85025; 85610; 85730; 87040; 87086; 87449; 87899; 93005; 94760; J0171; J0456; J0696; J2060; J2920; J2930; J3475; J3490; J7042; J7611; J7620; Q9967

== ENCOUNTER 2022-12-22 21:16 | Inpatient (IN) | payer OTHER ==
[2022-12-22] MEDS ORDERED: methylPREDNISolone Sod Succ/PF 125 MG/2 ML VIAL ONE (21:45)
[2022-12-22] MEDS ORDERED: Ipratropium/Albuterol 3 ML NEB ONE (21:58)
[2022-12-22 22:03] LABS: #Basophils 0.2 thou/uL (0.0-0.2); #Eosinphils 3.3 thou/uL (0.0-0.7); #Monocytes 0.9 thou/uL (0.11-0.59); #Neutrophils 8.4 thou/uL (1.40-6.50); %Basophils 1.4 % (0.0-1.0); %Eosinophils 21.5 % (0.0-10.0); %Lymphocytes 15.5 % (21.0-51.0); %Monocytes 6.1 % (0.0-10.0); %Neutrophils 55.2 % (42.0-75.0); Hematocrit 47.9 % (42.0-52.0); Hemoglobin 15.4 g/dL (14.0-18.0); Mean Corpuscular HGB CONC 32.2 g/dL (32.0-36.0); Mean Corpuscular Hemoglobin 28.6 pg (27.0-31.0); Mean Corpuscular Volume 88.9 fl (78.0-98.0); Mean Platelet Volume 10.3 fL (7.4-10.4); Platelet Count 408 10x3/uL (130-400); RBC Distribution Width 13.7 % (11.5-14.5); Red Blood Cell (RBC) Count 5.39 mill/uL (4.70-6.10); White Blood Cell (WBC) Count 15.3 10x3/uL (4.8-10.8)
[2022-12-22] MEDS ORDERED: cefTRIAXone (ROCEPHIN) 2 GM VIAL ONE (22:12)
[2022-12-22] MEDS ORDERED: Nitroglycerin 2% Ointment 1 INCH/1 GM Packet ONE (22:20)
[2022-12-22] MEDS ORDERED: Furosemide 40 MG/4 ML VIAL ONE (22:20)
[2022-12-22] MEDS ORDERED: Nitroglycerin 0.4 MG TAB 1 EACH ONE (22:20)
[2022-12-22] MEDS ORDERED: Magnesium 2 GM/50 ML BAG (IN WATER) ONE (22:20)
[2022-12-22 22:30] LABS: ALT (SGPT) 38 U/L (8-55); AST (SGOT) 38 U/L (5-34); Albumin 3.9 g/dL (3.5-5.0); Alkaline Phosphatase 93 U/L (40-110); Anion Gap 12 mmol/L (10-20); BUN (Urea Nitrogen) 15 mg/dL (8.9-20.6); Bilirubin, Total 0.4 mg/dL (0.2-1.2); Calc. Creatinine Clearance 0 mL/min (70-130); Carbon Dioxide 25 mmol/L (22-29); Chloride 104 mmol/L (98-107); Estimated GFR 57; Glucose 140 mg/dL (70-105); Potassium 4.4 mmol/L (3.5-5.1); Protein, Total 6.9 g/dL (6.0-8.3); Sodium 137 mmol/L (136-145)
[2022-12-22 22:45] LABS: Analyzer IN Cardio ER; Calcium, Ionized (venous) 1.11 mmol/L (1.16-1.32); Chloride (VBG) 103 mmol/L (98-106); Hematocrit-VBG 43 % (42.0-52.0); Hemoglobin (Hb) 14.7 g/dL (13.2-17.3); Potassium (VBG) 4.45 mmol/L (3.70-5.30); Sodium 136.7 mmol/L (133-146); pH (venous) 7.263 (7.32-7.43)
[2022-12-22] MEDS ORDERED: Ipratropium/Albuterol 3 ML NEB NEB PRN (23:53)
[2022-12-22] MEDS ORDERED: Senokot S 8.6-50 MG TAB PO PRN (23:55)
[2022-12-23] MEDS ORDERED: Azithromycin 500 MG VIAL ONE (00:17)
[2022-12-23] MEDS ORDERED: Electrolyte Replacement Protocol 1 EACH FS SCH (01:45)
[2022-12-23 01:48] VITALS: BMI 29.3
[2022-12-23 02:35] LABS: #Basophils 0.1 thou/uL (0.0-0.2); #Eosinphils 0.4 thou/uL (0.0-0.7); #Monocytes 0.2 thou/uL (0.11-0.59); #Neutrophils 12.1 thou/uL (1.40-6.50); %Basophils 0.5 % (0.0-1.0); %Eosinophils 2.8 % (0.0-10.0); %Lymphocytes 5.5 % (21.0-51.0); %Monocytes 1.7 % (0.0-10.0); %Neutrophils 89.1 % (42.0-75.0); Hematocrit 42.1 % (42.0-52.0); Hemoglobin 13.7 g/dL (14.0-18.0); Mean Corpuscular HGB CONC 32.5 g/dL (32.0-36.0); Mean Corpuscular Hemoglobin 28.5 pg (27.0-31.0); Mean Corpuscular Volume 87.5 fl (78.0-98.0); Mean Platelet Volume 10.1 fL (7.4-10.4); Platelet Count 360 10x3/uL (130-400); RBC Distribution Width 13.3 % (11.5-14.5); Red Blood Cell (RBC) Count 4.81 mill/uL (4.70-6.10); White Blood Cell (WBC) Count 13.6 10x3/uL (4.8-10.8)
[2022-12-23 02:59] LABS: Amphetamine Not Detected (NotDetected); Barbiturates Screen Not Detected (NotDetected); Benzodiazepine Screen Not Detected (NotDetected); Cocaine Metabolite Screen Detected (NotDetected); Methadone Not Detected (NotDetected); Methamphetamine Not Detected (NotDetected); Opiate Screen Not Detected (NotDetected); Oxycodone Screen Not Detected (NotDetected); Phencyclidine (PCP) Not Detected (NotDetected); THC/Cannabinoid Screen Not Detected (NotDetected); Tricyclic Screen Not Detected (NotDetected)
[2022-12-23 03:01] LABS: Troponin I 0.088 ng/mL (< 0.028)
[2022-12-23 03:04] LABS: Anion Gap 12 mmol/L (10-20); BUN (Urea Nitrogen) 16 mg/dL (8.9-20.6); Calc. Creatinine Clearance 87 mL/min (70-130); Calcium 8.6 mg/dL (7.8-10.44); Carbon Dioxide 27 mmol/L (22-29); Chloride 103 mmol/L (98-107); Estimated GFR 71; Glucose 135 mg/dL (70-105); Potassium 4.3 mmol/L (3.5-5.1); Sodium 138 mmol/L (136-145)
[2022-12-23 03:09] LABS: Troponin I 0.084 ng/mL (< 0.028)
[2022-12-23] MEDS: Furosemide 40 MG/4 ML VIAL SLOW IVP SCH ×2 (06:42→15:03)
[2022-12-23] MEDS: Aspirin 81 mg Enteric Coated Tablet PO SCH (08:11)
[2022-12-23] MEDS: PARoxetine 20 MG TAB PO SCH (08:11)
[2022-12-23] MEDS: Carvedilol 25 MG TAB PO SCH ×2 (08:11→20:09)
[2022-12-23] MEDS: Atorvastatin Calcium 40 MG TAB PO SCH (08:11)
[2022-12-23] MEDS: Spironolactone 25 MG TAB PO SCH (08:11)
[2022-12-23] MEDS: Famotidine 20 MG TAB PO SCH ×2 (08:11→20:10)
[2022-12-23] MEDS: Acetaminophen 325 MG TAB PO PRN (08:12)
[2022-12-23] MEDS: methylPREDNISolone Sod Succ 40 MG VIAL IVP SCH ×2 (08:12→20:11)
[2022-12-23] MEDS ORDERED: Losartan 25 MG TAB PO SCH (09:00)
[2022-12-23] MEDS: HYDROcodone/Acetaminophen 5/325 mg Tablet PO PRN (15:03)
[2022-12-23] MEDS: Sacubitril 49 MG/Valsartan 51 MG TABLET PO SCH (20:09)
[2022-12-23] MEDS: guaiFENesin ER 600 MG TAB PO SCH (20:10)
[2022-12-24 04:12] LABS: #Monocytes 0.9 thou/uL (0.11-0.59); #Neutrophils 19.4 thou/uL (1.40-6.50); %Basophils 0.2 % (0.0-1.0); %Lymphocytes 4.1 % (21.0-51.0); %Neutrophils 91.2 % (42.0-75.0); Hematocrit 44.6 % (42.0-52.0); Hemoglobin 14.8 g/dL (14.0-18.0); Mean Corpuscular HGB CONC 33.2 g/dL (32.0-36.0); Mean Corpuscular Hemoglobin 28.5 pg (27.0-31.0); Mean Corpuscular Volume 85.9 fl (78.0-98.0); Mean Platelet Volume 10.1 fL (7.4-10.4); Platelet Count 421 10x3/uL (130-400); RBC Distribution Width 13.2 % (11.5-14.5); Red Blood Cell (RBC) Count 5.19 mill/uL (4.70-6.10); White Blood Cell (WBC) Count 21.3 10x3/uL (4.8-10.8)
[2022-12-24 04:36] LABS: Anion Gap 12 mmol/L (10-20); BUN (Urea Nitrogen) 21 mg/dL (8.9-20.6); Calc. Creatinine Clearance 95 mL/min (70-130); Calcium 9.4 mg/dL (7.8-10.44); Carbon Dioxide 27 mmol/L (22-29); Chloride 101 mmol/L (98-107); Estimated GFR 79; Glucose 134 mg/dL (70-105); Potassium 4.1 mmol/L (3.5-5.1); Sodium 136 mmol/L (136-145)
[2022-12-24] MEDS: Furosemide 40 MG/4 ML VIAL SLOW IVP SCH (05:40)
[2022-12-24] MEDS: Acetaminophen 325 MG TAB PO PRN ×2 (05:45→20:17)
[2022-12-24] MEDS: Aspirin 81 mg Enteric Coated Tablet PO SCH (09:33)
[2022-12-24] MEDS: Sacubitril 49 MG/Valsartan 51 MG TABLET PO SCH ×2 (09:33→20:18)
[2022-12-24] MEDS: guaiFENesin ER 600 MG TAB PO SCH ×2 (09:33→20:18)
[2022-12-24] MEDS: Spironolactone 25 MG TAB PO SCH (09:34)
[2022-12-24] MEDS: Carvedilol 25 MG TAB PO SCH ×2 (09:34→20:18)
[2022-12-24] MEDS: predniSONE 20 MG TAB PO SCH (09:34)
[2022-12-24] MEDS: Atorvastatin Calcium 40 MG TAB PO SCH (09:34)
[2022-12-24] MEDS: Doxycycline 100 MG CAP PO SCH ×2 (09:34→20:19)
[2022-12-24] MEDS: Famotidine 20 MG TAB PO SCH ×2 (09:35→20:18)
[2022-12-24] MEDS: Empagliflozin 10 MG TAB PO SCH (09:35)
[2022-12-24] MEDS: PARoxetine 20 MG TAB PO SCH (09:35)
[2022-12-24] MEDS ORDERED: Furosemide 40 MG/4 ML VIAL SLOW IVP SCH (14:00)
[2022-12-24] MEDS: Ondansetron ODT 4 MG TAB PO PRN (20:19)
[2022-12-24] MEDS: HYDROcodone/Acetaminophen 5/325 mg Tablet PO PRN (23:29)
[2022-12-25 03:55] LABS: #Monocytes 1.4 thou/uL (0.11-0.59); #Neutrophils 17.1 thou/uL (1.40-6.50); %Basophils 0.1 % (0.0-1.0); %Eosinophils 0.2 % (0.0-10.0); %Lymphocytes 6.8 % (21.0-51.0); %Monocytes 6.9 % (0.0-10.0); %Neutrophils 85.5 % (42.0-75.0); Hematocrit 49.1 % (42.0-52.0); Hemoglobin 15.8 g/dL (14.0-18.0); Mean Corpuscular HGB CONC 32.2 g/dL (32.0-36.0); Mean Corpuscular Hemoglobin 28.7 pg (27.0-31.0); Mean Platelet Volume 10.2 fL (7.4-10.4); Platelet Count 470 10x3/uL (130-400); RBC Distribution Width 13.5 % (11.5-14.5)
[2022-12-25 04:02] LABS: Mean Corpuscular Volume 89.3 fl (78.0-98.0)
[2022-12-25 04:17] LABS: Anion Gap 11 mmol/L (10-20); BUN (Urea Nitrogen) 27 mg/dL (8.9-20.6); Calc. Creatinine Clearance 85 mL/min (70-130); Calcium 9.2 mg/dL (7.8-10.44); Carbon Dioxide 30 mmol/L (22-29); Chloride 97 mmol/L (98-107); Estimated GFR 69; Glucose 107 mg/dL (70-105); Potassium 4.1 mmol/L (3.5-5.1); Sodium 134 mmol/L (136-145)
[2022-12-25] MEDS: Sacubitril 49 MG/Valsartan 51 MG TABLET PO SCH ×2 (08:35→19:55)
[2022-12-25] MEDS: Aspirin 81 mg Enteric Coated Tablet PO SCH (08:35)
[2022-12-25] MEDS: Furosemide 40 MG TAB PO SCH ×2 (08:35→13:40)
[2022-12-25] MEDS: HYDROcodone/Acetaminophen 5/325 mg Tablet PO PRN ×2 (08:35→22:30)
[2022-12-25] MEDS: Doxycycline 100 MG CAP PO SCH ×2 (08:35→19:53)
[2022-12-25] MEDS: Empagliflozin 10 MG TAB PO SCH (08:36)
[2022-12-25] MEDS: Carvedilol 25 MG TAB PO SCH ×2 (08:36→19:54)
[2022-12-25] MEDS: predniSONE 20 MG TAB PO SCH (08:37)
[2022-12-25] MEDS: Spironolactone 25 MG TAB PO SCH (08:37)
[2022-12-25] MEDS: Famotidine 20 MG TAB PO SCH ×2 (08:38→19:54)
[2022-12-25] MEDS: guaiFENesin ER 600 MG TAB PO SCH ×2 (08:39→19:54)
[2022-12-25] MEDS: Atorvastatin Calcium 40 MG TAB PO SCH (08:39)
[2022-12-25] MEDS: PARoxetine 20 MG TAB PO SCH (08:39)
[2022-12-25] MEDS ORDERED: traMADol HCl 50 MG TAB PO SCH (11:15)
[2022-12-25] MEDS ORDERED: Dicyclomine 10 MG CAP PO PRN (13:40)
[2022-12-25] MEDS ORDERED: Magnesium Citrate 300 ML BOT PO SCH (18:00)
[2022-12-25] MEDS: Ondansetron ODT 4 MG TAB PO PRN (22:30)
[2022-12-26 04:02] LABS: #Eosinphils 0.1 thou/uL (0.0-0.7); #Monocytes 1.3 thou/uL (0.11-0.59); #Neutrophils 11.8 thou/uL (1.40-6.50); %Basophils 0.2 % (0.0-1.0); %Eosinophils 0.5 % (0.0-10.0); %Neutrophils 79.8 % (42.0-75.0); Hematocrit 46.5 % (42.0-52.0); Hemoglobin 15.1 g/dL (14.0-18.0); Mean Corpuscular HGB CONC 32.5 g/dL (32.0-36.0); Mean Corpuscular Hemoglobin 28.4 pg (27.0-31.0); Mean Corpuscular Volume 87.6 fl (78.0-98.0); Mean Platelet Volume 10.1 fL (7.4-10.4); Platelet Count 425 10x3/uL (130-400); RBC Distribution Width 13.6 % (11.5-14.5); Red Blood Cell (RBC) Count 5.31 mill/uL (4.70-6.10); White Blood Cell (WBC) Count 14.8 10x3/uL (4.8-10.8)
[2022-12-26 04:24] LABS: Anion Gap 8 mmol/L (10-20); BUN (Urea Nitrogen) 23 mg/dL (8.9-20.6); Calc. Creatinine Clearance 87 mL/min (70-130); Calcium 8.7 mg/dL (7.8-10.44); Carbon Dioxide 33 mmol/L (22-29); Chloride 98 mmol/L (98-107); Estimated GFR 71; Glucose 98 mg/dL (70-105); Sodium 135 mmol/L (136-145)
[2022-12-26] MEDS: Aspirin 81 mg Enteric Coated Tablet PO SCH (09:05)
[2022-12-26] MEDS: Empagliflozin 10 MG TAB PO SCH (09:06)
[2022-12-26] MEDS: Atorvastatin Calcium 40 MG TAB PO SCH (09:06)
[2022-12-26] MEDS: Carvedilol 25 MG TAB PO SCH (09:06)
[2022-12-26] MEDS: Doxycycline 100 MG CAP PO SCH (09:06)
[2022-12-26] MEDS: guaiFENesin ER 600 MG TAB PO SCH (09:07)
[2022-12-26] MEDS: Furosemide 40 MG TAB PO SCH ×2 (09:07→14:20)
[2022-12-26] MEDS: PARoxetine 20 MG TAB PO SCH (09:07)
[2022-12-26] MEDS: Famotidine 20 MG TAB PO SCH (09:07)
[2022-12-26] MEDS: Sacubitril 49 MG/Valsartan 51 MG TABLET PO SCH (09:08)
[2022-12-26] MEDS: Spironolactone 25 MG TAB PO SCH (09:08)
[2022-12-26] MEDS: predniSONE 20 MG TAB PO SCH (09:08)
[2022-12-26 12:57] VITALS: BP 102/55; TEMP 97.9
[2022-12-26 15:36] LABS: Campy jejuni + coli by PCR Negative (Negative); STEC Shiga Toxin 1+2 Negative (Negative); Salmonella spp. by PCR Negative (Negative); Shigella spp + EIEC by PCR Negative (Negative)
== END 2022-12-26 17:51 | disposition home or self-care (01) | DRG 291 ==
LOC: ERS 21:16 → IMCU/EMU 23:57 → 2NO 12-23 18:49
PROVIDERS: ADMIT Student in an Organized Health Care Education/Training Program; ATTEND Internal Medicine
PROC: 5A09357 Assistance with Respiratory Ventilation, Less than 24 Consecutive Hours, Continuous Positive Airway Pressure (ICD-10-PCS; principal; 2022-12-22)
DX: I13.0 Hypertensive heart and chronic kidney disease with heart failure and stage 1 through stage 4 chronic kidney disease, or unspecified chronic kidney disease (principal); I50.23 Acute on chronic systolic (congestive) heart failure; J96.01 Acute respiratory failure with hypoxia; J44.1 Chronic obstructive pulmonary disease with (acute) exacerbation; N17.9 Acute kidney failure, unspecified; E78.00 Pure hypercholesterolemia, unspecified; I42.8 Other cardiomyopathies; F41.9 Anxiety disorder, unspecified; F32.A Depression, unspecified; F17.210 Nicotine dependence, cigarettes, uncomplicated; N18.9 Chronic kidney disease, unspecified; F14.10 Cocaine abuse, uncomplicated; F19.10 Other psychoactive substance abuse, uncomplicated; R19.7 Diarrhea, unspecified; G89.29 Other chronic pain; M54.9 Dorsalgia, unspecified; Z79.82 Long term (current) use of aspirin; Z79.899 Other long term (current) drug therapy
CPT/HCPCS: 36415; 36416; 71045; 71046; 80048; 80053; 80306; 82805; 83880; 84484; 85025; 87505; 93005; 93306; 93798; 94644; 94660; 96365; 96367; 96375; J0456; J0696; J1650; J1940; J2920; J2930; J3475; J7512; J7620; Q0162

== ENCOUNTER 2023-02-09 08:31 | Inpatient (IN) | payer OTHER ==
[2023-02-09] MEDS ORDERED: Ipratropium/Albuterol 3 ML NEB ONE ×3 (08:52→16:17)
[2023-02-09 09:17] LABS: #Basophils 0.1 thou/uL (0.0-0.2); #Eosinphils 0.4 thou/uL (0.0-0.7); #Monocytes 1.1 thou/uL (0.11-0.59); #Neutrophils 4.6 thou/uL (1.40-6.50); %Basophils 1.5 % (0.0-1.0); %Eosinophils 5.2 % (0.0-10.0); %Lymphocytes 15.8 % (21.0-51.0); %Monocytes 14.7 % (0.0-10.0); %Neutrophils 62.5 % (42.0-75.0); Hematocrit 54.9 % (42.0-52.0); Hemoglobin 18.2 g/dL (14.0-18.0); Mean Corpuscular HGB CONC 33.2 g/dL (32.0-36.0); Mean Corpuscular Volume 87.4 fl (78.0-98.0); Mean Platelet Volume 10.3 fL (7.4-10.4); Platelet Count 299 10x3/uL (130-400); RBC Distribution Width 14.3 % (11.5-14.5); Red Blood Cell (RBC) Count 6.28 mill/uL (4.70-6.10); White Blood Cell (WBC) Count 7.3 10x3/uL (4.8-10.8)
[2023-02-09 09:25] LABS: Troponin I 0.019 ng/mL (< 0.028)
[2023-02-09 09:33] LABS: ALT (SGPT) 23 U/L (8-55); AST (SGOT) 29 U/L (5-34); Alkaline Phosphatase 81 U/L (40-110); Anion Gap 16 mmol/L (10-20); BUN (Urea Nitrogen) 9 mg/dL (8.9-20.6); Bilirubin, Total 0.5 mg/dL (0.2-1.2); Calc. Creatinine Clearance 0 mL/min (70-130); Carbon Dioxide 28 mmol/L (22-29); Chloride 101 mmol/L (98-107); Estimated GFR 69; Globulin 3.4 g/dL (2.4-3.5); Glucose 109 mg/dL (70-105); Protein, Total 8.4 g/dL (6.0-8.3); Sodium 141 mmol/L (136-145)
[2023-02-09] MEDS ORDERED: Magnesium 2 GM/50 ML BAG (IN WATER) ONE (10:08)
[2023-02-09] MEDS ORDERED: methylPREDNISolone Sod Succ/PF 125 MG/2 ML VIAL ONE (10:09)
[2023-02-09] MEDS ORDERED: Ipratropium Bromide 2.5 ml Neb NEB PRN (10:55)
[2023-02-09] MEDS ORDERED: Ondansetron ODT 4 MG TAB PO PRN (10:58)
[2023-02-09] MEDS ORDERED: Acetaminophen 325 MG TAB PO PRN (10:58)
[2023-02-09] MEDS ORDERED: Ondansetron PF 4 MG/2 ML Vial IVP PRN (10:58)
[2023-02-09 12:28] LABS: Troponin I 0.022 ng/mL (< 0.028)
[2023-02-09] MEDS ORDERED: Furosemide 20 MG/2 ML VIAL SLOW IVP SCH (12:30)
[2023-02-09] MEDS ORDERED: LevoFLOXacin 500 mg/D5W 500 MG in Premix 1 BAG IVPB SCH (13:00)
[2023-02-09 13:20] LABS: SARS-CoV-2 NAA Rapid Test Not Detected (NotDetected)
[2023-02-09 13:36] VITALS: BMI 29.9
[2023-02-09] MEDS ORDERED: Furosemide 100 MG/10 ML VIAL ONE (14:36)
[2023-02-09] MEDS ORDERED: LevoFLOXacin 500 mg/D5W 100 ML BAG ONE (14:36)
[2023-02-09] MEDS ORDERED: GUAIFENESIN SF SOLN 200 MG/10 ML UDCUP PO PRN (15:32)
[2023-02-09] MEDS ORDERED: Lorazepam 2 MG/ML VIAL IM PRN (15:33)
[2023-02-09] MEDS ORDERED: Lorazepam 1 MG TAB PO PRN (15:33)
[2023-02-09] MEDS ORDERED: Electrolyte Replacement Protocol 1 EACH FS SCH (15:45)
[2023-02-09 15:54] LABS: Troponin I 0.012 ng/mL (< 0.028)
[2023-02-09] MEDS ORDERED: Thiamine HCl 200 MG/2 ML VIAL SLOW IVP SCH (16:00)
[2023-02-09] MEDS ORDERED: Benzonatate 100 MG CAP ONE (16:17)
[2023-02-09] MEDS: Benzonatate 100 MG CAP PO PRN (16:48)
[2023-02-09] MEDS: Ipratropium/Albuterol 3 ML NEB NEB SCH ×3 (16:50→23:55)
[2023-02-09 19:00] LABS: Syphilis Antibody Nonreactive (Nonreactive); Syphilis Antibody Index 0.04 S/CO (<1.00 Non-Reactive)
[2023-02-09] MEDS: methylPREDNISolone Sod Succ 40 MG VIAL IVP SCH (20:44)
[2023-02-09] MEDS ORDERED: Doxycycline 100 MG in Sodium Chloride 0.9% 100 ML IVPB SCH (21:00)
[2023-02-09 21:58] LABS: Amphetamine Not Detected (NotDetected); Barbiturates Screen Not Detected (NotDetected); Benzodiazepine Screen Not Detected (NotDetected); Cocaine Metabolite Screen Detected (NotDetected); Methadone Not Detected (NotDetected); Methamphetamine Not Detected (NotDetected); Opiate Screen Detected (NotDetected); Oxycodone Screen Not Detected (NotDetected); Phencyclidine (PCP) Not Detected (NotDetected); THC/Cannabinoid Screen Not Detected (NotDetected); Tricyclic Screen Not Detected (NotDetected)
[2023-02-10] MEDS: methylPREDNISolone Sod Succ 40 MG VIAL IVP SCH ×2 (00:11→07:09)
[2023-02-10] MEDS: Ipratropium/Albuterol 3 ML NEB NEB SCH ×5 (00:30→14:17)
[2023-02-10] MEDS ORDERED: Carvedilol 25 MG TAB PO SCH ×2 (01:30→09:00)
[2023-02-10] MEDS: Benzonatate 100 MG CAP PO PRN ×2 (01:50→09:42)
[2023-02-10 05:00] LABS: #Monocytes 0.2 thou/uL (0.11-0.59); #Neutrophils 10.3 thou/uL (1.40-6.50); %Neutrophils 91.7 % (42.0-75.0); Hematocrit 47.7 % (42.0-52.0); Hemoglobin 15.9 g/dL (14.0-18.0); Mean Corpuscular HGB CONC 33.3 g/dL (32.0-36.0); Mean Corpuscular Hemoglobin 28.8 pg (27.0-31.0); Mean Corpuscular Volume 86.4 fl (78.0-98.0); Mean Platelet Volume 10.4 fL (7.4-10.4); Platelet Count 319 10x3/uL (130-400); RBC Distribution Width 13.6 % (11.5-14.5); Red Blood Cell (RBC) Count 5.52 mill/uL (4.70-6.10); White Blood Cell (WBC) Count 11.3 10x3/uL (4.8-10.8)
[2023-02-10 05:32] LABS: Anion Gap 16 mmol/L (10-20); BUN (Urea Nitrogen) 18 mg/dL (8.9-20.6); Calc. Creatinine Clearance 79 mL/min (70-130); Calcium 9.4 mg/dL (7.8-10.44); Carbon Dioxide 23 mmol/L (22-29); Chloride 99 mmol/L (98-107); Estimated GFR 65; Glucose 190 mg/dL (70-105); Magnesium 2.1 mg/dL (1.6-2.6); Potassium 4.1 mmol/L (3.5-5.1); Sodium 134 mmol/L (136-145)
[2023-02-10] MEDS ORDERED: Furosemide 20 MG/2 ML VIAL SLOW IVP SCH (06:00)
[2023-02-10] MEDS ORDERED: Multivit, Therapeutic 1 TAB PO SCH (09:00)
[2023-02-10] MEDS ORDERED: Sacubitril 49 MG/Valsartan 51 MG TABLET PO SCH (09:00)
[2023-02-10] MEDS ORDERED: Atorvastatin Calcium 40 MG TAB PO SCH (09:00)
[2023-02-10] MEDS ORDERED: Folic Acid 1 MG TAB PO SCH (09:00)
[2023-02-10 11:50] VITALS: BP 179/119; TEMP 98
[2023-02-10] MEDS ORDERED: Lorazepam 1 MG TAB PO PRN (15:33)
[2023-02-11] MEDS ORDERED: Lorazepam 1 MG TAB PO PRN (15:33)
[2023-02-12] MEDS ORDERED: Thiamine 100 MG TAB PO SCH (09:00)
[2023-02-12] MEDS ORDERED: Lorazepam 0.5 MG TAB PO PRN (15:33)
== END 2023-02-10 16:34 | disposition home or self-care (01) | DRG 291 ==
LOC: ERS 08:31 → ERHOLD 10:54 → 2SW 10:54
PROVIDERS: ADMIT Internal Medicine; ATTEND Hospitalist
DX: I11.0 Hypertensive heart disease with heart failure (principal); I50.23 Acute on chronic systolic (congestive) heart failure; J96.01 Acute respiratory failure with hypoxia; J44.1 Chronic obstructive pulmonary disease with (acute) exacerbation; I42.8 Other cardiomyopathies; E78.00 Pure hypercholesterolemia, unspecified; F41.9 Anxiety disorder, unspecified; F32.A Depression, unspecified; F17.210 Nicotine dependence, cigarettes, uncomplicated; F14.10 Cocaine abuse, uncomplicated; Z20.822 Contact with and (suspected) exposure to COVID-19; Z79.899 Other long term (current) drug therapy; Z79.82 Long term (current) use of aspirin
CPT/HCPCS: 36415; 71045; 80048; 80053; 80306; 83735; 83880; 84484; 85025; 86780; 93005; 94640; 96365; 96375; 96376; J1650; J1940; J1956; J2920; J2930; J3411; J3475; J7620

== ENCOUNTER 2023-05-03 08:50 | Inpatient (IN) | payer OTHER ==
[2023-05-03 09:15] LABS: #Eosinphils 0.5 thou/uL (0.0-0.7); #Monocytes 0.8 thou/uL (0.11-0.59); %Basophils 0.5 % (0.0-1.0); %Eosinophils 5.3 % (0.0-10.0); %Lymphocytes 15.1 % (21.0-51.0); %Monocytes 9.5 % (0.0-10.0); %Neutrophils 69.4 % (42.0-75.0); Hematocrit 44.3 % (42.0-52.0); Hemoglobin 14.6 g/dL (14.0-18.0); Mean Corpuscular Hemoglobin 29.5 pg (27.0-31.0); Mean Corpuscular Volume 89.5 fl (78.0-98.0); Platelet Count 229 10x3/uL (130-400); RBC Distribution Width 14.1 % (11.5-14.5); Red Blood Cell (RBC) Count 4.95 mill/uL (4.70-6.10); White Blood Cell (WBC) Count 8.6 10x3/uL (4.8-10.8)
[2023-05-03] MEDS ORDERED: Dexamethasone 10 MG/ML VIAL ONE (09:22)
[2023-05-03 09:43] LABS: ALT (SGPT) 44 U/L (8-55); AST (SGOT) 33 U/L (5-34); Albumin 3.9 g/dL (3.5-5.0); Alkaline Phosphatase 64 U/L (40-110); Anion Gap 12 mmol/L (10-20); BUN (Urea Nitrogen) 13 mg/dL (8.9-20.6); Bilirubin, Total 0.8 mg/dL (0.2-1.2); Calc. Creatinine Clearance 0 mL/min (70-130); Calcium 8.9 mg/dL (7.8-10.44); Carbon Dioxide 28 mmol/L (22-29); Chloride 105 mmol/L (98-107); Estimated GFR 80; Globulin 2.5 g/dL (2.4-3.5); Glucose 91 mg/dL (70-105); Potassium 3.7 mmol/L (3.5-5.1); Protein, Total 6.4 g/dL (6.0-8.3); Sodium 141 mmol/L (136-145)
[2023-05-03 09:45] LABS: Troponin I 0.039 ng/mL (< 0.028)
[2023-05-03] MEDS ORDERED: Nitroglycerin 2% Ointment 1 INCH/1 GM Packet ONE (10:05)
[2023-05-03] MEDS ORDERED: Furosemide 40 MG (4 mL) VIAL ONE (10:05)
[2023-05-03] MEDS ORDERED: Ondansetron PF 4 MG/2 ML Vial IVP PRN (10:30)
[2023-05-03] MEDS ORDERED: Ondansetron ODT 4 MG TAB PO PRN (10:30)
[2023-05-03] MEDS ORDERED: Electrolyte Replacement Protocol 1 EACH FS SCH (10:30)
[2023-05-03] MEDS ORDERED: Ipratropium/Albuterol 3 ML NEB NEB PRN (11:35)
[2023-05-03 12:06] VITALS: BMI 31.9
[2023-05-03 12:27] LABS: Amphetamine Not Detected (NotDetected); Barbiturates Screen Not Detected (NotDetected); Benzodiazepine Screen Not Detected (NotDetected); Cocaine Metabolite Screen Detected (NotDetected); Methadone Not Detected (NotDetected); Methamphetamine Not Detected (NotDetected); Opiate Screen Not Detected (NotDetected); Oxycodone Screen Not Detected (NotDetected); Phencyclidine (PCP) Not Detected (NotDetected); THC/Cannabinoid Screen Not Detected (NotDetected); Tricyclic Screen Not Detected (NotDetected)
[2023-05-03 13:19] LABS: SARS-CoV-2 NAA Rapid Test Not Detected (NotDetected)
[2023-05-03 14:03] LABS: Troponin I 0.049 ng/mL (< 0.028)
[2023-05-03] MEDS: Ketorolac Tromethamine 30 MG (1 mL) VIAL IVP PRN (14:57)
[2023-05-03] MEDS: Furosemide 40 MG (4 mL) VIAL SLOW IVP SCH (14:57)
[2023-05-03 16:14] LABS: Troponin I 0.049 ng/mL (< 0.028)
[2023-05-03] MEDS ORDERED: Carvedilol 6.25 MG TAB PO SCH (17:30)
[2023-05-03 19:12] LABS: Magnesium 1.8 mg/dL (1.6-2.6)
[2023-05-03] MEDS: Sacubitril 49 MG/Valsartan 51 MG TABLET PO SCH (19:53)
[2023-05-03] MEDS: Carvedilol 25 MG TAB PO SCH (19:54)
[2023-05-03] MEDS: Famotidine 20 MG TAB PO SCH (19:54)
[2023-05-03] MEDS: Atorvastatin Calcium 40 MG TAB PO SCH (19:54)
[2023-05-03 20:08] LABS: Campy jejuni + coli by PCR Negative (Negative); STEC Shiga Toxin 1+2 Negative (Negative); Salmonella spp. by PCR Negative (Negative); Shigella spp + EIEC by PCR Negative (Negative)
[2023-05-03] MEDS ORDERED: Melatonin 3 MG TAB PO PRN (21:15)
[2023-05-03] MEDS ORDERED: Cyclobenzaprine 10 MG TAB PO SCH (22:15)
[2023-05-04 05:13] LABS: #Eosinphils 0.1 thou/uL (0.0-0.7); #Monocytes 0.9 thou/uL (0.11-0.59); #Neutrophils 8.1 thou/uL (1.40-6.50); %Basophils 0.3 % (0.0-1.0); %Eosinophils 1.3 % (0.0-10.0); %Lymphocytes 11.6 % (21.0-51.0); %Neutrophils 77.5 % (42.0-75.0); Hematocrit 41.1 % (42.0-52.0); Hemoglobin 13.5 g/dL (14.0-18.0); Mean Corpuscular HGB CONC 32.8 g/dL (32.0-36.0); Mean Corpuscular Hemoglobin 29.3 pg (27.0-31.0); Mean Corpuscular Volume 89.2 fl (78.0-98.0); Mean Platelet Volume 10.2 fL (7.4-10.4); Platelet Count 257 10x3/uL (130-400); RBC Distribution Width 13.8 % (11.5-14.5); Red Blood Cell (RBC) Count 4.61 mill/uL (4.70-6.10); White Blood Cell (WBC) Count 10.4 10x3/uL (4.8-10.8)
[2023-05-04] MEDS: Furosemide 40 MG (4 mL) VIAL SLOW IVP SCH ×2 (05:57→13:58)
[2023-05-04 06:30] LABS: Anion Gap 16 mmol/L (10-20); BUN (Urea Nitrogen) 16 mg/dL (8.9-20.6); Calc. Creatinine Clearance 95 mL/min (70-130); Calcium 8.4 mg/dL (7.8-10.44); Carbon Dioxide 22 mmol/L (22-29); Chloride 103 mmol/L (98-107); Estimated GFR 76; Glucose 106 mg/dL (70-105); Magnesium 3.8 mg/dL (1.6-2.6); Potassium 3.3 mmol/L (3.5-5.1); Sodium 138 mmol/L (136-145)
[2023-05-04] MEDS ORDERED: Acetaminophen 325 MG TAB PO PRN (08:20)
[2023-05-04] MEDS ORDERED: Potassium Chloride 20 MEQ TAB PO SCH (08:30)
[2023-05-04] MEDS: Empagliflozin 10 MG TAB PO SCH (09:34)
[2023-05-04] MEDS: Aspirin Chewable 81 MG TAB PO SCH (09:34)
[2023-05-04] MEDS: Famotidine 20 MG TAB PO SCH ×2 (09:34→19:51)
[2023-05-04] MEDS: Sacubitril 49 MG/Valsartan 51 MG TABLET PO SCH ×2 (09:34→19:51)
[2023-05-04] MEDS: Carvedilol 25 MG TAB PO SCH ×2 (09:35→19:51)
[2023-05-04] MEDS: Ketorolac Tromethamine 30 MG (1 mL) VIAL IVP PRN ×2 (09:35→17:55)
[2023-05-04] MEDS: Enoxaparin 40 MG (0.4 mL) SYRINGE SC SCH (09:35)
[2023-05-04] MEDS: Atorvastatin Calcium 40 MG TAB PO SCH (19:50)
[2023-05-05] MEDS: Furosemide 40 MG (4 mL) VIAL SLOW IVP SCH (05:59)
[2023-05-05] MEDS ORDERED: Spironolactone 25 MG TAB PO SCH (08:00)
[2023-05-05 08:10] VITALS: BP 142/96; TEMP 97.3
[2023-05-05] MEDS ORDERED: Potassium Chloride 20 MEQ TAB PO SCH (08:45)
[2023-05-05] MEDS: Famotidine 20 MG TAB PO SCH (09:08)
[2023-05-05] MEDS: Enoxaparin 40 MG (0.4 mL) SYRINGE SC SCH (09:08)
[2023-05-05] MEDS: Sacubitril 49 MG/Valsartan 51 MG TABLET PO SCH (09:08)
[2023-05-05] MEDS: Empagliflozin 10 MG TAB PO SCH (09:09)
[2023-05-05] MEDS: Aspirin Chewable 81 MG TAB PO SCH (09:09)
[2023-05-05] MEDS: Carvedilol 25 MG TAB PO SCH (09:09)
== END 2023-05-05 14:00 | disposition home or self-care (01) | DRG 291 ==
LOC: ERS 08:50 → 2NO 10:15
PROVIDERS: ADMIT Internal Medicine; ATTEND Internal Medicine
DX: I13.0 Hypertensive heart and chronic kidney disease with heart failure and stage 1 through stage 4 chronic kidney disease, or unspecified chronic kidney disease (principal); I50.23 Acute on chronic systolic (congestive) heart failure; I42.0 Dilated cardiomyopathy; F17.210 Nicotine dependence, cigarettes, uncomplicated; N18.9 Chronic kidney disease, unspecified; E78.5 Hyperlipidemia, unspecified; F32.A Depression, unspecified; F41.9 Anxiety disorder, unspecified; F14.10 Cocaine abuse, uncomplicated; I16.0 Hypertensive urgency; R19.7 Diarrhea, unspecified; E87.6 Hypokalemia; Z20.822 Contact with and (suspected) exposure to COVID-19; J44.9 Chronic obstructive pulmonary disease, unspecified; Z91.148 Patient's other noncompliance with medication regimen for other reason; Z79.899 Other long term (current) drug therapy; Z71.51 Drug abuse counseling and surveillance of drug abuser; Z79.82 Long term (current) use of aspirin; Z98.890 Other specified postprocedural states
CPT/HCPCS: 0241U; 36415; 71045; 80048; 80053; 80306; 83735; 83880; 84484; 85025; 87324; 87449; 87505; 93005; 96374; 97139; J1100; J1650; J1885; J1940; J7620

== ENCOUNTER 2023-05-10 22:40 | Emergency (ER) | payer OTHER ==
[2023-05-10] MEDS ORDERED: Ketorolac Tromethamine 30 MG (1 mL) VIAL ONE (23:28)
[2023-05-10] MEDS ORDERED: methylPREDNISolone Sod Succ/PF 125 MG/2 ML VIAL ONE (23:28)
[2023-05-10] MEDS ORDERED: Ipratropium/Albuterol 3 ML NEB ONE (23:59)
[2023-05-11 00:08] LABS: #Basophils 0.1 thou/uL (0.0-0.2); #Eosinphils 0.4 thou/uL (0.0-0.7); #Monocytes 0.8 thou/uL (0.11-0.59); #Neutrophils 5.8 thou/uL (1.40-6.50); %Basophils 0.8 % (0.0-1.0); %Eosinophils 4.1 % (0.0-10.0); %Lymphocytes 22.3 % (21.0-51.0); %Monocytes 8.8 % (0.0-10.0); %Neutrophils 63.9 % (42.0-75.0); Hematocrit 46.4 % (42.0-52.0); Hemoglobin 15.2 g/dL (14.0-18.0); Mean Corpuscular HGB CONC 32.8 g/dL (32.0-36.0); Mean Corpuscular Hemoglobin 29.2 pg (27.0-31.0); Mean Corpuscular Volume 89.2 fl (78.0-98.0); Mean Platelet Volume 10.4 fL (7.4-10.4); Platelet Count 343 10x3/uL (130-400); RBC Distribution Width 13.7 % (11.5-14.5); White Blood Cell (WBC) Count 9.1 10x3/uL (4.8-10.8)
[2023-05-11 00:32] LABS: ALT (SGPT) 47 U/L (8-55); AST (SGOT) 37 U/L (5-34); Albumin 3.9 g/dL (3.5-5.0); Alkaline Phosphatase 71 U/L (40-110); Anion Gap 13 mmol/L (10-20); BUN (Urea Nitrogen) 16 mg/dL (8.9-20.6); Bilirubin, Total 0.5 mg/dL (0.2-1.2); Calc. Creatinine Clearance 0 mL/min (70-130); Calcium 9.2 mg/dL (7.8-10.44); Carbon Dioxide 28 mmol/L (22-29); Chloride 102 mmol/L (98-107); Estimated GFR 76; Globulin 2.6 g/dL (2.4-3.5); Glucose 92 mg/dL (70-105); Potassium 3.7 mmol/L (3.5-5.1); Protein, Total 6.5 g/dL (6.0-8.3); Sodium 139 mmol/L (136-145)
[2023-05-11 00:40] LABS: Troponin I 0.068 ng/mL (< 0.028)
[2023-05-11] MEDS ORDERED: Furosemide 40 MG (4 mL) VIAL ONE (01:16)
[2023-05-11] MEDS ORDERED: Aspirin Chewable 81 MG TAB ONE (01:17)
[2023-05-11 03:40] LABS: Troponin I 0.059 ng/mL (< 0.028)
== END 2023-05-11 03:54 | disposition home or self-care (01) ==
LOC: ERS 22:40
DX: R51.9 Headache, unspecified (principal); R05.9 Cough, unspecified; I10 Essential (primary) hypertension; J44.9 Chronic obstructive pulmonary disease, unspecified; F17.210 Nicotine dependence, cigarettes, uncomplicated
CPT/HCPCS: 36415; 71045; 80053; 83880; 84484; 85025; 93005; 96374; 96375; J1885; J1940; J2930; J7620

== ENCOUNTER 2023-05-30 07:50 | Observation (INO) | payer OTHER ==
[2023-05-30] MEDS ORDERED: Furosemide 40 MG (4 mL) VIAL ONE (08:48)
[2023-05-30] MEDS ORDERED: Nitroglycerin 2% Ointment 1 INCH/1 GM Packet ONE (08:49)
[2023-05-30] MEDS ORDERED: Magnesium 2 GM/50 ML BAG (IN WATER) ONE (08:49)
[2023-05-30] MEDS ORDERED: methylPREDNISolone Sod Succ/PF 125 MG/2 ML VIAL ONE (08:49)
[2023-05-30 08:59] LABS: Actual Bicarbonate (HCO3v) 28.7 mEq/L (22-28); Calcium, Ionized (venous) 1.21 mmol/L (1.16-1.32); Chloride (VBG) 104 mmol/L (98-106); Hematocrit-VBG 46 % (42.0-52.0); Hemoglobin (Hb) 15.6 g/dL (13.2-17.3); Potassium (VBG) 4.34 mmol/L (3.70-5.30); Sodium 143 mmol/L (133-146); pH (venous) 7.273 (7.32-7.43)
[2023-05-30 09:01] LABS: #Basophils 0.1 thou/uL (0.0-0.2); #Eosinphils 0.4 thou/uL (0.0-0.7); #Monocytes 0.7 thou/uL (0.11-0.59); #Neutrophils 5.1 thou/uL (1.40-6.50); %Basophils 1.1 % (0.0-1.0); %Eosinophils 4.5 % (0.0-10.0); %Lymphocytes 19.9 % (21.0-51.0); %Monocytes 9.4 % (0.0-10.0); Hematocrit 46.1 % (42.0-52.0); Hemoglobin 14.5 g/dL (14.0-18.0); Mean Corpuscular HGB CONC 31.5 g/dL (32.0-36.0); Mean Corpuscular Hemoglobin 28.8 pg (27.0-31.0); Mean Corpuscular Volume 91.5 fl (78.0-98.0); Mean Platelet Volume 10.2 fL (7.4-10.4); Platelet Count 288 10x3/uL (130-400); RBC Distribution Width 14.2 % (11.5-14.5); Red Blood Cell (RBC) Count 5.04 mill/uL (4.70-6.10); White Blood Cell (WBC) Count 7.9 10x3/uL (4.8-10.8)
[2023-05-30 09:21] LABS: ALT (SGPT) 22 U/L (8-55); AST (SGOT) 26 U/L (5-34); Albumin 3.8 g/dL (3.5-5.0); Alkaline Phosphatase 63 U/L (40-110); Anion Gap 9 mmol/L (10-20); BUN (Urea Nitrogen) 16 mg/dL (8.9-20.6); Bilirubin, Total 0.3 mg/dL (0.2-1.2); Calc. Creatinine Clearance 0 mL/min (70-130); Carbon Dioxide 31 mmol/L (22-29); Chloride 108 mmol/L (98-107); Estimated GFR 72; Globulin 2.2 g/dL (2.4-3.5); Glucose 82 mg/dL (70-105); Potassium 4.6 mmol/L (3.5-5.1); Sodium 143 mmol/L (136-145)
[2023-05-30] MEDS ORDERED: hydrALAZINE 20 MG/ML VIAL ONE ×2 (09:57→12:23)
[2023-05-30 10:21] LABS: SARS-CoV-2 NAA Rapid Test Not Detected (NotDetected)
[2023-05-30] MEDS ORDERED: Ipratropium/Albuterol 3 ML NEB NEB PRN (12:41)
[2023-05-30] MEDS ORDERED: Ondansetron PF 4 MG/2 ML Vial IVP PRN (12:41)
[2023-05-30] MEDS ORDERED: Ipratropium Bromide 2.5 ml Neb NEB PRN (12:41)
[2023-05-30] MEDS ORDERED: Ondansetron ODT 4 MG TAB PO PRN (12:41)
[2023-05-30] MEDS ORDERED: Acetaminophen 650 MG Suppository PR PRN (12:41)
[2023-05-30] MEDS: Ipratropium/Albuterol 3 ML NEB NEB SCH (13:21)
[2023-05-30] MEDS ORDERED: Lorazepam 1 MG TAB ONE (15:56)
[2023-05-30] MEDS: Lorazepam 1 MG TAB PO SCH (15:59)
[2023-05-30 16:10] VITALS: BMI 24.7
[2023-05-30 16:52] LABS: Bacteria/HPF None Seen HPF (None Seen); Bilirubin Negative (Negative); Blood, Urine Negative (Negative); CAUTI Indications for Culture Alt mental st,lethar; Clarity Clear (Clear); Glucose, Urine (Dipstick) Normal (Negative); Ketone, Urine Negative (Negative); Leukocyte Negative Leu/uL (Negative); Nitrite Negative (Negative); Protein, Urine (Dipstick) Negative (Neg-Trace); RBC/HPF None Seen HPF (0-3); Specific Gravity, Urine 1.009 (1.002-1.036); Squamous Epithelial None Seen HPF (0-3); Urobilinogen Normal mg/dL (Less than 2); WBC/HPF 0-3 HPF (0-3)
[2023-05-30 16:54] LABS: Urine Culture Reflex No No
[2023-05-30 16:57] LABS: Amphetamine Not Detected (NotDetected); Barbiturates Screen Not Detected (NotDetected); Benzodiazepine Screen Not Detected (NotDetected); Cocaine Metabolite Screen Detected (NotDetected); Methadone Not Detected (NotDetected); Methamphetamine Not Detected (NotDetected); Opiate Screen Not Detected (NotDetected); Oxycodone Screen Not Detected (NotDetected); Phencyclidine (PCP) Not Detected (NotDetected); THC/Cannabinoid Screen Not Detected (NotDetected); Tricyclic Screen Not Detected (NotDetected)
[2023-05-30 17:23] LABS: Troponin I 0.051 ng/mL (< 0.028)
[2023-05-30] MEDS ORDERED: Albuterol 200 PUFF (6.7GM INHALER) INH PRN (19:03)
[2023-05-30 21:13] LABS: Troponin I 0.061 ng/mL (< 0.028)
[2023-05-30] MEDS: Famotidine 20 MG TAB PO SCH (21:28)
[2023-05-30] MEDS: Sacubitril 49 MG/Valsartan 51 MG TABLET PO SCH (21:28)
[2023-05-30] MEDS: Acetaminophen 325 MG TAB PO PRN (21:31)
[2023-05-31] MEDS: hydrOXYzine Pamoate 25 mg Capsule PO SCH (02:48)
[2023-05-31 05:07] LABS: #Basophils 0.1 thou/uL (0.0-0.2); #Monocytes 1.6 thou/uL (0.11-0.59); #Neutrophils 11.9 thou/uL (1.40-6.50); %Basophils 0.4 % (0.0-1.0); %Eosinophils 0.3 % (0.0-10.0); %Monocytes 10.5 % (0.0-10.0); %Neutrophils 78.4 % (42.0-75.0); Hematocrit 43.1 % (42.0-52.0); Mean Corpuscular HGB CONC 32.5 g/dL (32.0-36.0); Mean Corpuscular Volume 89.4 fl (78.0-98.0); Mean Platelet Volume 10.4 fL (7.4-10.4); Platelet Count 321 10x3/uL (130-400); RBC Distribution Width 13.8 % (11.5-14.5); Red Blood Cell (RBC) Count 4.82 mill/uL (4.70-6.10); White Blood Cell (WBC) Count 15.2 10x3/uL (4.8-10.8)
[2023-05-31 05:30] LABS: Anion Gap 10 mmol/L (10-20); BUN (Urea Nitrogen) 16 mg/dL (8.9-20.6); Calc. Creatinine Clearance 104 mL/min (70-130); Calcium 8.7 mg/dL (7.8-10.44); Carbon Dioxide 26 mmol/L (22-29); Chloride 106 mmol/L (98-107); Estimated GFR 89; Glucose 121 mg/dL (70-105); Potassium 3.5 mmol/L (3.5-5.1); Sodium 138 mmol/L (136-145)
[2023-05-31] MEDS: methylPREDNISolone Sod Succ 40 MG VIAL IVP SCH (05:50)
[2023-05-31 08:17] VITALS: BP 171/104; TEMP 97.8
[2023-05-31] MEDS: Aspirin Chewable 81 MG TAB PO SCH (09:40)
[2023-05-31] MEDS: Empagliflozin 10 MG TAB PO SCH (09:41)
[2023-05-31] MEDS: Atorvastatin Calcium 40 MG TAB PO SCH (09:41)
[2023-05-31] MEDS: Enoxaparin 40 MG (0.4 mL) SYRINGE SC SCH (09:41)
== END 2023-05-31 10:08 | disposition left against medical advice (07) ==
LOC: ERS 07:50 → ERHOLD 11:46 → 2SW 18:02
PROVIDERS: ADMIT Internal Medicine; ATTEND Family Medicine
DX: J45.901 Unspecified asthma with (acute) exacerbation (principal); I13.0 Hypertensive heart and chronic kidney disease with heart failure and stage 1 through stage 4 chronic kidney disease, or unspecified chronic kidney disease; I50.23 Acute on chronic systolic (congestive) heart failure; N18.9 Chronic kidney disease, unspecified; F17.290 Nicotine dependence, other tobacco product, uncomplicated; J44.9 Chronic obstructive pulmonary disease, unspecified; F14.10 Cocaine abuse, uncomplicated; E78.5 Hyperlipidemia, unspecified; Z79.51 Long term (current) use of inhaled steroids; Z79.899 Other long term (current) drug therapy
CPT/HCPCS: 36415; 71045; 80048; 80053; 80306; 81001; 82805; 83880; 84484; 85025; 93005; 94640; 96374; 96375; 96376; G0378; J0360; J1940; J2920; J2930; J3475; J7620; Q0177

== ENCOUNTER 2023-07-19 06:00 | Emergency (ER) | payer OTHER ==
[2023-07-19] MEDS ORDERED: predniSONE 20 MG TAB ONE ×2 (06:27→06:31)
[2023-07-19] MEDS ORDERED: Ipratropium/Albuterol 3 ML NEB ONE ×2 (06:27→06:31)
[2023-07-19] MEDS ORDERED: Albuterol 2.5 MG (3 mL) NEB ONE (06:27)
== END 2023-07-19 07:21 | disposition home or self-care (01) ==
LOC: ERS 06:00
DX: J45.901 Unspecified asthma with (acute) exacerbation (principal); I10 Essential (primary) hypertension; F17.210 Nicotine dependence, cigarettes, uncomplicated; F17.290 Nicotine dependence, other tobacco product, uncomplicated
CPT/HCPCS: J7512; J7611; J7620

== ENCOUNTER 2024-01-12 11:50 | Emergency (ER) | payer OTHER | END 2024-01-12 13:12 | disposition home or self-care (01) | LOC: EEVIPCON 11:50 → ERS 11:50 | DX: Z00.00 Encounter for general adult medical examination without abnormal findings (principal); F14.90 Cocaine use, unspecified, uncomplicated; I11.0 Hypertensive heart disease with heart failure; I50.9 Heart failure, unspecified; J44.89 Other specified chronic obstructive pulmonary disease; F17.210 Nicotine dependence, cigarettes, uncomplicated; F17.290 Nicotine dependence, other tobacco product, uncomplicated ==

== ENCOUNTER 2024-02-18 08:04 | Emergency (ER) | payer OTHER ==
[2024-02-18 09:23] LABS: Hematocrit 38.8 % (42.0-52.0); Hemoglobin 13.1 g/dL (14.0-18.0); Mean Corpuscular HGB CONC 33.8 g/dL (32.0-36.0); Mean Corpuscular Hemoglobin 29.6 pg (27.0-31.0); Mean Corpuscular Volume 87.6 fL (78.0-98.0); Mean Platelet Volume 10.5 fL (7.4-10.4); Platelet Count 291 10x3/uL (130-400); RBC Distribution Width 13.3 % (11.5-14.5); Red Blood Cell (RBC) Count 4.43 mill/uL (4.70-6.10)
[2024-02-18 09:41] LABS: ALT (SGPT) 17 U/L (8-55); AST (SGOT) 23 U/L (5-34); Albumin 3.3 g/dL (3.5-5.0); Alkaline Phosphatase 64 U/L (40-110); Anion Gap 11 mmol/L (10-20); BUN (Urea Nitrogen) 14 mg/dL (8.9-20.6); Bilirubin, Total 0.2 mg/dL (0.2-1.2); Calc. Creatinine Clearance 0 mL/min (70-130); Calcium 8.9 mg/dL (7.8-10.44); Carbon Dioxide 26 mmol/L (22-29); Chloride 108 mmol/L (98-107); Estimated GFR 82; Globulin 2.8 g/dL (2.4-3.5); Glucose 103 mg/dL (70-105); Potassium 3.7 mmol/L (3.5-5.1); Protein, Total 6.1 g/dL (6.0-8.3); Sodium 141 mmol/L (136-145); Troponin I 0.028 ng/mL (< 0.028)
[2024-02-18 10:05] LABS: Band 1 % (5-11); Eosinophils 5 % (0-10); Lymphocytes 11 % (21-51); Monocytes 3 % (0-10); Neutrophil 75 % (42-75); Platelet Adequacy Comment Platelets Normal; Polychromasia SLIGHT = 2-3 cells HPF (0-2); Reactive Lymphocytes 4 % (0-10)
[2024-02-18 10:30] LABS: Bacteria/HPF None Seen HPF (None Seen); Bilirubin Negative (Negative); Blood, Urine Negative (Negative); CAUTI Indications for Culture Dysuria,urgency,freq; Clarity Clear (Clear); Glucose, Urine (Dipstick) Normal (Negative); Ketone, Urine Negative (Negative); Leukocyte Negative Leu/uL (Negative); Nitrite Negative (Negative); Protein, Urine (Dipstick) Negative (Neg-Trace); RBC/HPF None Seen HPF (0-3); Specific Gravity, Urine 1.014 (1.002-1.036); Squamous Epithelial None Seen HPF (0-3); Urobilinogen Normal mg/dL (Less than 2); WBC/HPF 0-3 HPF (0-3)
[2024-02-18 10:50] LABS: Urine Culture Reflex No No
== END 2024-02-18 10:57 | disposition home or self-care (01) ==
LOC: ERS 08:04
DX: J45.901 Unspecified asthma with (acute) exacerbation (principal); R60.0 Localized edema; S90.811D Abrasion, right foot, subsequent encounter; Z76.0 Encounter for issue of repeat prescription; J44.9 Chronic obstructive pulmonary disease, unspecified; I11.0 Hypertensive heart disease with heart failure; I50.9 Heart failure, unspecified; X58.XXXD Exposure to other specified factors, subsequent encounter; Z87.891 Personal history of nicotine dependence
CPT/HCPCS: 71046; 80053; 81001; 83880; 84484; 85025; 93005; 94640; 96374

== ENCOUNTER 2024-03-03 06:48 | Inpatient (IN) | payer OTHER ==
[2024-03-03 07:34] LABS: #Basophils 0.03 10x3/uL (0.0-0.2); %Basophils 0.3 % (0.0-1.0); %Eosinophils 0.8 % (0.0-10.0); %Lymphocytes 14.6 % (21.0-51.0); %Monocytes 8.9 % (0.0-10.0); %Neutrophils 75.2 % (42.0-75.0); Hematocrit 46.5 % (42.0-52.0); Hemoglobin 15.2 g/dL (14.0-18.0); Mean Corpuscular HGB CONC 32.7 g/dL (32.0-36.0); Mean Corpuscular Hemoglobin 28.6 pg (27.0-31.0); Mean Corpuscular Volume 87.6 fL (78.0-98.0); Mean Platelet Volume 10.4 fL (7.4-10.4); Platelet Count 308 10x3/uL (130-400); RBC Distribution Width 13.2 % (11.5-14.5); Red Blood Cell (RBC) Count 5.31 mill/uL (4.70-6.10)
[2024-03-03] MEDS ORDERED: methylPREDNISolone Sod Succ/PF 125 MG/2 ML VIAL ONE (07:35)
[2024-03-03] MEDS ORDERED: Magnesium 2 GM/50 ML BAG (IN WATER) ONE (07:35)
[2024-03-03] MEDS ORDERED: Ipratropium/Albuterol 3 ML NEB ONE (07:35)
[2024-03-03 07:47] LABS: ALT (SGPT) 19 U/L (8-55); AST (SGOT) 24 U/L (5-34); Albumin 3.9 g/dL (3.5-5.0); Alkaline Phosphatase 70 U/L (40-110); Anion Gap 13 mmol/L (10-20); BUN (Urea Nitrogen) 12 mg/dL (8.9-20.6); Bilirubin, Total 0.4 mg/dL (0.2-1.2); Calc. Creatinine Clearance 0 mL/min (70-130); Calcium 9.1 mg/dL (7.8-10.44); Carbon Dioxide 28 mmol/L (22-29); Chloride 103 mmol/L (98-107); Estimated GFR 70; Globulin 3.5 g/dL (2.4-3.5); Glucose 96 mg/dL (70-105); Magnesium 2.3 mg/dL (1.6-2.6); Potassium 4.1 mmol/L (3.5-5.1); Protein, Total 7.4 g/dL (6.0-8.3); Sodium 140 mmol/L (136-145)
[2024-03-03 07:51] LABS: Troponin I 0.036 ng/mL (< 0.028)
[2024-03-03] MEDS ORDERED: Albuterol 2.5 MG (3 mL) NEB ONE ×2 (07:54→07:57)
[2024-03-03 08:05] LABS: INR-International Normal Ratio 0.9; Prothrombin Time 11.8 sec (12.0-14.7)
[2024-03-03 08:06] LABS: PTT 28.5 sec (22.9-36.1)
[2024-03-03] MEDS ORDERED: Metoclopramide HCl 10 MG (2 mL) VIAL ONE (08:28)
[2024-03-03] MEDS ORDERED: Acetaminophen 325 MG TAB ONE (08:28)
[2024-03-03] MEDS ORDERED: Acetaminophen 325 MG TAB PO PRN (09:37)
[2024-03-03] MEDS ORDERED: Ipratropium/Albuterol 3 ML NEB NEB PRN (09:38)
[2024-03-03 10:42] LABS: Troponin I 0.034 ng/mL (< 0.028)
[2024-03-03] MEDS ORDERED: methylPREDNISolone Sod Succ/PF 125 MG/2 ML VIAL IVP SCH (12:00)
[2024-03-03 13:29] LABS: Troponin I 0.022 ng/mL (< 0.028)
[2024-03-03] MEDS: Nicotine 21 MG PATCH TD SCH (14:28)
[2024-03-03] MEDS ORDERED: Furosemide 40 MG TAB ONE (14:44)
[2024-03-03] MEDS ORDERED: Lisinopril 20 MG TAB ONE (14:44)
[2024-03-03] MEDS: Lisinopril 20 MG TAB PO SCH ×2 (14:54→21:22)
[2024-03-03] MEDS: Furosemide 40 MG TAB PO SCH (14:55)
[2024-03-03] MEDS: Ipratropium/Albuterol 3 ML NEB NEB SCH (17:06)
[2024-03-03] MEDS: methylPREDNISolone Sod Succ 40 MG VIAL IVP SCH (17:06)
[2024-03-03] MEDS: Mometasone 100 MCG/Formoterol 5 MCG 120 PUFF INHALER INH SCH ×2 (17:06→19:17)
[2024-03-03] MEDS: hydrALAZINE 20 MG/ML VIAL SLOW IVP PRN (17:14)
[2024-03-03] MEDS: Hydrochlorothiazide 25 MG TAB PO SCH (17:15)
[2024-03-03 18:21] VITALS: BMI 32.3
[2024-03-03] MEDS: Amlodipine 10 MG TAB PO SCH (18:52)
[2024-03-03] MEDS: Famotidine 20 MG TAB PO SCH (21:12)
[2024-03-03] MEDS: Melatonin 3 MG TAB PO SCH (21:35)
[2024-03-03] MEDS: guaiFENesin ER 600 MG TAB PO PRN (23:58)
[2024-03-04 04:45] LABS: #Basophils Less than 0.03 10x3/uL (0.0-0.2); #Eosinophils Less than 0.03 10x3/uL (0.0-0.7); %Basophils 0.1 % (0.0-1.0); %Lymphocytes 2.8 % (21.0-51.0); %Monocytes 3.2 % (0.0-10.0); %Neutrophils 93.3 % (42.0-75.0); Hematocrit 49.4 % (42.0-52.0); Hemoglobin 16.1 g/dL (14.0-18.0); Mean Corpuscular HGB CONC 32.6 g/dL (32.0-36.0); Mean Corpuscular Volume 86.1 fL (78.0-98.0); Mean Platelet Volume 10.4 fL (7.4-10.4); Platelet Count 363 10x3/uL (130-400); RBC Distribution Width 13.2 % (11.5-14.5); Red Blood Cell (RBC) Count 5.74 mill/uL (4.70-6.10)
[2024-03-04 05:09] LABS: Anion Gap 16 mmol/L (10-20); BUN (Urea Nitrogen) 20 mg/dL (8.9-20.6); Calc. Creatinine Clearance 87 mL/min (70-130); Calcium 10.1 mg/dL (7.8-10.44); Carbon Dioxide 25 mmol/L (22-29); Chloride 98 mmol/L (98-107); Estimated GFR 67; Glucose 122 mg/dL (70-105); Magnesium 2.2 mg/dL (1.6-2.6); Sodium 135 mmol/L (136-145)
[2024-03-04] MEDS: Enoxaparin 40 MG (0.4 mL) SYRINGE SC SCH (09:52)
[2024-03-04] MEDS: Amlodipine 10 MG TAB PO SCH (09:53)
[2024-03-04] MEDS: Doxazosin 2 MG TAB PO SCH ×2 (10:59→20:57)
[2024-03-04] MEDS ORDERED: cloNIDine 0.1 MG TAB PO PRN (15:17)
[2024-03-04] MEDS: Lorazepam 1 MG TAB PO SCH (15:31)
[2024-03-04 19:51] LABS: #Basophils 0.03 10x3/uL (0.0-0.2); %Basophils 0.2 % (0.0-1.0); %Eosinophils 0.3 % (0.0-10.0); %Lymphocytes 6.6 % (21.0-51.0); %Monocytes 5.1 % (0.0-10.0); %Neutrophils 87.3 % (42.0-75.0); Hemoglobin 16.7 g/dL (14.0-18.0); Mean Corpuscular HGB CONC 34.1 g/dL (32.0-36.0); Mean Corpuscular Hemoglobin 28.7 pg (27.0-31.0); Mean Corpuscular Volume 84.2 fL (78.0-98.0); Mean Platelet Volume 10.5 fL (7.4-10.4); Platelet Count 370 10x3/uL (130-400); RBC Distribution Width 13.4 % (11.5-14.5); Red Blood Cell (RBC) Count 5.82 mill/uL (4.70-6.10)
[2024-03-04 20:13] LABS: Potassium 3.9 mmol/L (3.5-5.1)
[2024-03-04] MEDS: dilTIAZem 25 MG/5 ML VIAL SLOW IVP SCH (20:56)
[2024-03-04] MEDS: traZODone HCl 50 MG TAB PO PRN (21:04)
[2024-03-05 05:16] LABS: #Basophils 0.05 10x3/uL (0.0-0.2); %Basophils 0.4 % (0.0-1.0); %Eosinophils 0.4 % (0.0-10.0); %Lymphocytes 14.4 % (21.0-51.0); %Neutrophils 76.5 % (42.0-75.0); Hematocrit 49.2 % (42.0-52.0); Hemoglobin 16.2 g/dL (14.0-18.0); Mean Corpuscular HGB CONC 32.9 g/dL (32.0-36.0); Mean Corpuscular Hemoglobin 28.6 pg (27.0-31.0); Mean Corpuscular Volume 86.8 fL (78.0-98.0); Mean Platelet Volume 10.4 fL (7.4-10.4); Platelet Count 346 10x3/uL (130-400); RBC Distribution Width 13.6 % (11.5-14.5); Red Blood Cell (RBC) Count 5.67 mill/uL (4.70-6.10)
[2024-03-05 05:55] LABS: Anion Gap 17 mmol/L (10-20); BUN (Urea Nitrogen) 30 mg/dL (8.9-20.6); Calc. Creatinine Clearance 73 mL/min (70-130); Calcium 9.6 mg/dL (7.8-10.44); Carbon Dioxide 25 mmol/L (22-29); Chloride 100 mmol/L (98-107); Estimated GFR 54; Glucose 97 mg/dL (70-105); Potassium 3.4 mmol/L (3.5-5.1); Sodium 139 mmol/L (136-145)
[2024-03-05] MEDS ORDERED: Ipratropium Bromide 2.5 ml Neb NEB PRN (07:57)
[2024-03-05] MEDS ORDERED: Hydrochlorothiazide 25 MG TAB PO SCH (09:00)
[2024-03-05] MEDS: Pantoprazole DR 40 MG TAB PO SCH (09:15)
[2024-03-05] MEDS: Potassium Chloride 20 MEQ TAB PO SCH (09:15)
[2024-03-05] MEDS: methylPREDNISolone Sod Succ 40 MG VIAL IVP SCH (09:16)
[2024-03-05] MEDS: Furosemide 40 MG TAB PO SCH (09:16)
[2024-03-05 12:52] VITALS: BP 133/91; TEMP 97.6
[2024-03-06] MEDS ORDERED: Empagliflozin 10 MG TAB PO SCH (09:00)
== END 2024-03-05 14:30 | disposition left against medical advice (07) | DRG 291 ==
LOC: ERS 06:48 → ERHOLD 08:23 → 2NO 16:58
PROVIDERS: ADMIT Internal Medicine; ATTEND Internal Medicine
DX: I13.0 Hypertensive heart and chronic kidney disease with heart failure and stage 1 through stage 4 chronic kidney disease, or unspecified chronic kidney disease (principal); I50.23 Acute on chronic systolic (congestive) heart failure; J96.01 Acute respiratory failure with hypoxia; F14.20 Cocaine dependence, uncomplicated; N17.9 Acute kidney failure, unspecified; I24.89 Other forms of acute ischemic heart disease; I16.1 Hypertensive emergency; J44.1 Chronic obstructive pulmonary disease with (acute) exacerbation; I50.22 Chronic systolic (congestive) heart failure; F32.A Depression, unspecified; N18.9 Chronic kidney disease, unspecified; F41.9 Anxiety disorder, unspecified; D72.829 Elevated white blood cell count, unspecified; E78.5 Hyperlipidemia, unspecified; Z71.51 Drug abuse counseling and surveillance of drug abuser; Z87.891 Personal history of nicotine dependence; Z79.52 Long term (current) use of systemic steroids; Z79.899 Other long term (current) drug therapy
CPT/HCPCS: 36415; 71045; 80048; 80053; 83605; 83735; 83880; 84145; 84484; 85025; 85610; 85730; 86141; 87428; 93005; 93010; 94640; 94660; 96365; 96366; 96368; 96375; J0360; J1650; J2765; J2919; J3475; J7611; J7620

== ENCOUNTER 2024-04-04 12:58 | Emergency (ER) | payer OTHER ==
[2024-04-04] MEDS ORDERED: Iopamidol-370 76% 500 ML MDV (1 ML CHARGE) ONE (13:07)
[2024-04-04 15:22] LABS: Bacteria/HPF None Seen HPF (None Seen); Bilirubin Negative (Negative); Blood, Urine Negative (Negative); CAUTI Indications for Culture Pelvic or flank pain; Clarity Clear (Clear); Glucose, Urine (Dipstick) >=1000 mg/dL (Negative); Ketone, Urine Negative (Negative); Leukocyte Negative Leu/uL (Negative); Nitrite Negative (Negative); Protein, Urine (Dipstick) Negative (Neg-Trace); RBC/HPF None Seen HPF (0-3); Specific Gravity, Urine 1.005 (1.002-1.036); Squamous Epithelial None Seen HPF (0-3); Urobilinogen Normal mg/dL (Less than 2); WBC/HPF None Seen HPF (0-3); pH, Urine 7.5 (5.0-9.0)
[2024-04-04 15:31] LABS: #Basophils 0.06 10x3/uL (0.0-0.2); %Basophils 0.9 % (0.0-1.0); %Eosinophils 5.9 % (0.0-10.0); %Lymphocytes 27.2 % (21.0-51.0); %Monocytes 11.1 % (0.0-10.0); %Neutrophils 54.6 % (42.0-75.0); Hemoglobin 14.8 g/dL (14.0-18.0); Mean Corpuscular HGB CONC 33.6 g/dL (32.0-36.0); Mean Corpuscular Hemoglobin 27.9 pg (27.0-31.0); Mean Platelet Volume 9.9 fL (7.4-10.4); Platelet Count 321 10x3/uL (130-400); RBC Distribution Width 12.8 % (11.5-14.5)
[2024-04-04 15:39] LABS: Urine Culture Reflex No No
[2024-04-04 15:50] LABS: ALT (SGPT) 21 U/L (8-55); AST (SGOT) 33 U/L (5-34); Albumin 3.9 g/dL (3.5-5.0); Alkaline Phosphatase 66 U/L (40-110); Anion Gap 12 mmol/L (10-20); BUN (Urea Nitrogen) 15 mg/dL (8.9-20.6); Bilirubin, Total 0.4 mg/dL (0.2-1.2); Calc. Creatinine Clearance 0 mL/min (70-130); Calcium 9.2 mg/dL (7.8-10.44); Carbon Dioxide 28 mmol/L (22-29); Chloride 103 mmol/L (98-107); Estimated GFR 77; Globulin 3.4 g/dL (2.4-3.5); Glucose 79 mg/dL (70-105); Lipase 59 U/L (8-78); Potassium 3.8 mmol/L (3.5-5.1); Protein, Total 7.3 g/dL (6.0-8.3); Sodium 139 mmol/L (136-145)
== END 2024-04-04 16:49 ==
LOC: EEVIPCON 12:58 → ERS 12:58
DX: R10.31 Right lower quadrant pain (principal); I11.0 Hypertensive heart disease with heart failure; I50.9 Heart failure, unspecified; F17.290 Nicotine dependence, other tobacco product, uncomplicated
CPT/HCPCS: 71045; 74177; 80053; 81001; 83690; 85025; 87428; 96374